=== PATIENT | female | born 1960 | race Caucasian/White ===

== ENCOUNTER 2016-12-26 14:49 | Emergency (ER) | payer BC ==
[~2016-12-26 14:49] MED LIST: AZIT250T3 PO; LORA-474 PO
[2016-12-26 15:06] VITALS: BP 126/78; PULSE 94; RESP 22; TEMP 98.7; O2SAT 99
[2016-12-26] MEDS ORDERED: SODIUM CHLORIDE 0.9% FLUSH 5 ML FLUSH IVF PRN (15:15)
[2016-12-26] MEDS ORDERED: NITROGLYCERIN 0.4 MG SL 25 TABS/BTL SL ONE (15:15)
[2016-12-26] MEDS ORDERED: ONDANSETRON HCL 4 MG/2 ML VIAL IV PUSH ONE (15:15)
[2016-12-26] MEDS ORDERED: MORPHINE SULFATE 4 MG/ML INJ IV PUSH ONE (15:15)
[2016-12-26] MEDS ORDERED: ASPIRIN 81 MG CHEW TAB PO ONE (15:15)
[2016-12-26] MEDS ORDERED: LORazepam 2 MG/ML VIAL IV PUSH ONE (15:15)
[2016-12-26] MEDS ORDERED: SODIUM CHLORID 0.9% 500 ML INJ 500 ML IV ONE (15:15)
[2016-12-26 15:18] VITALS: RESP 22; O2SAT 99
[2016-12-26 15:20] VITALS: BP_SYST 121; BP_SYST 126; BP_DIAS 78; BP_DIAS 79; PULSE 88; RESP 16; O2SAT 100
--- NOTE | 2016-12-26 15:29 | PD ---
HPI Chief Complaint: Chest Pain Time Seen by Provider: 15:01 Travel History International Travel<30 days: No Contact w/Intl Traveler<30days: No Traveled to known affect area: No History of Present Illness HPI The patient is a 56-year-old female who presents to the emergency department for chest pain. The patient states she developed chest pain while sitting on her porch, crying, because her last week. The patient states the chest pain was substernal, sharp, intermittent, and lasting for several minutes in between episodes. The patient denied any shortness of breath , nausea, vomiting, or diaphoresis. The patient does have a history of anxiety for which she takes Ativan 1 mg daily. However, the patient denies any history of coronary artery disease, hypertension, hyperlipidemia, or diabetes. The patient does have a history tobacco use and has been smoking one to 2 packs of cigarettes per day, since her . PFSH Past Medical History Anxiety: Yes Heart Rhythm Problems: No Cardiac Catheterization: No Cardiovascular Problems: No High Cholesterol: Yes Congestive Heart Failure: No Diminished Hearing: Yes ("diminished") GERD: Yes Headaches: Yes Musculoskeletal: Yes (chronic back pain) Migraines: Yes ?: Not Menopausal: Yes : 4 Para: 4 Miscarriage: 0 : 1 Past Surgical History Section: Yes (1991 and 1992) Cholecystectomy: Yes Coronary Artery Bypass Graft: No Other Surgery: Yes ("1988 and 1990,two disc surgeries") Family History Family Myocardial Infarction: Yes Social History Alcohol Use: No Tobacco Use: Yes (2 PPD) Substance Use: No Allergies-Medications (Allergen,Severity, Reaction): Coded Allergies: Codeine (Verified Adverse Reaction, Severe, "Tears my stomach up, nausea and itchiness", 10/31/16) Reported Meds & Prescriptions Reported Meds & Active Scripts Active Ativan (Lorazepam) 1 Mg Tab 1 Mg PO DAILY PRN Review of Systems Except as stated in HPI: all other systems reviewed are Neg General / Constitutional: No: Fever HENT: No: Lightheadedness Cardiovascular: Positive: Chest Pain or Discomfort, No: Diaphoresis, Dyspnea on exertion Respiratory: No: Shortness of Breath Gastrointestinal: No: Nausea, Vomiting Musculoskeletal: No: Edema Neurologic: No: Dizziness Psychiatric: Positive: Anxiety Physical Exam Narrative GENERAL: Awake, alert, pleasant 56-year-old female who appears her stated age and is in no acute respiratory distress. Tearful. SKIN: Warm and dry. HEAD: Atraumatic. Normocephalic. EYES: Pupils equal and round. No scleral icterus. No injection or drainage. ENT: No nasal bleeding or discharge. Mucous membranes pink and moist. NECK: Trachea midline. No JVD. CARDIOVASCULAR: Regular rate and rhythm. No murmur appreciated. Heart rate in the 90s. RESPIRATORY: No accessory muscle use. Clear to auscultation. Breath sounds equal bilaterally. GASTROINTESTINAL: Abdomen soft, non-tender, nondistended. No epigastric tenderness. No rebound tenderness. MUSCULOSKELETAL: No obvious deformities. No clubbing. No cyanosis. No edema. NEUROLOGICAL: Awake and alert. No obvious cranial nerve deficits. Motor grossly within normal limits. Normal speech. PSYCHIATRIC: Tearful. Data Data Last Documented VS Vital Signs Date Time Temp Pulse Resp B/P Pulse Ox O2 Delivery O2 Flow Rate FiO2 12/26/16 20:22 18 96 12/26/16 19:42 69 Room Air 12/26/16 19:42 100/63 12/26/16 15:06 98.7 Orders Electrocardiogram (12/26/16 15:05) Ckmb (Isoenzyme) Profile (12/26/16 15:05) Complete Blood Count With Diff (12/26/16 15:05) Comprehensive Metabolic Panel (12/26/16 15:05) D-Dimer (12/26/16 15:05) Magnesium (Mg) (12/26/16 15:05) Prothrombin Time / Inr (Pt) (12/26/16 15:05) Act Partial Throm Time (Ptt) (12/26/16 15:05) Troponin I (12/26/16 15:05) Lipase (12/26/16 15:05) Chest, Single Ap (12/26/16 15:05) Ecg Monitoring (12/26/16 15:05) Bilateral Bp Monitoring (12/26/16 15:05) Iv Access Insert/Monitor (12/26/16 15:05) Oximetry (12/26/16 15:05) Oxygen Administration (12/26/16 15:05) Aspirin Chew (Aspirin Chew) (12/26/16 15:15) Morphine Inj (Morphine Inj) (12/26/16 15:15) Sodium Chloride 0.9% Flush (Ns Flush) (12/26/16 15:15) Nitroglycerin Sl (Nitrostat Sl) (12/26/16 15:15) Sodium Chlorid 0.9% 500 Ml Inj (Ns 500 M (12/26/16 15:15) Ondansetron Inj (Zofran Inj) (12/26/16 15:15) Lorazepam Inj (Ativan Inj) (12/26/16 15:15) Ct Pulmonary Angiogram (12/26/16 ) Troponin I (12/26/16 18:10) Iohexol 350 Inj (Omnipaque 350 Inj) (12/26/16 23:44) Labs Laboratory Tests Test 12/26/16 12/26/16 15:15 19:02 White Blood Count 4.6 TH/MM3 Red Blood Count 4.34 MIL/MM3 Hemoglobin 13.3 GM/DL Hematocrit 39.9 % Mean Corpuscular Volume 92.0 FL Mean Corpuscular Hemoglobin 30.7 PG Mean Corpuscular Hemoglobin 33.3 % Concent Red Cell Distribution Width 13.0 % Platelet Count 232 TH/MM3 Mean Platelet Volume 7.7 FL Neutrophils (%) (Auto) 66.4 % Lymphocytes (%) (Auto) 24.5 % Monocytes (%) (Auto) 7.6 % Eosinophils (%) (Auto) 0.8 % Basophils (%) (Auto) 0.7 % Neutrophils # (Auto) 3.2 TH/MM3 Lymphocytes # (Auto) 1.1 TH/MM3 Monocytes # (Auto) 0.3 TH/MM3 Eosinophils # (Auto) 0.0 TH/MM3 Basophils # (Auto) 0.0 TH/MM3 CBC Comment DIFF FINAL Differential Comment Prothrombin Time 11.2 SEC Prothromb Time International 1.0 RATIO Ratio Activated Partial 25.9 SEC Thromboplast Time D-Dimer Quantitative (PE/DVT) 0.73 MG/L FEU Sodium Level 146 MEQ/L Potassium Level 3.5 MEQ/L Chloride Level 108 MEQ/L Carbon Dioxide Level 28.7 MEQ/L Anion Gap 9 MEQ/L Blood Urea Nitrogen 11 MG/DL Creatinine 0.83 MG/DL Estimat Glomerular Filtration 72 ML/MIN Rate Random Glucose 147 MG/DL Calcium Level 8.8 MG/DL Magnesium Level 2.2 MG/DL Total Bilirubin 0.4 MG/DL Aspartate Amino Transf 13 U/L (AST/SGOT) Alanine Aminotransferase 23 U/L (ALT/SGPT) Alkaline Phosphatase 73 U/L Total Creatine Kinase 54 U/L Troponin I LESS THAN 0.02 LESS THAN 0.02 NG/ML NG/ML Total Protein 7.2 GM/DL Albumin 3.9 GM/DL Lipase 211 U/L [facility] Medical Decision Making Medical Screen Exam Complete: Yes Emergency Medical Condition: Yes Medical Record Reviewed: Yes Interpretation(s) EKG reveals normal sinus rhythm with a rate in 96. Nonspecific septal ST-T wave changes. Low QRS voltage precordial leads. Laboratory Tests Test 12/26/16 15:15 White Blood Count 4.6 TH/MM3 Red Blood Count 4.34 MIL/MM3 Hemoglobin 13.3 GM/DL Hematocrit 39.9 % Mean Corpuscular Volume 92.0 FL Mean Corpuscular Hemoglobin 30.7 PG Mean Corpuscular Hemoglobin 33.3 % Concent Red Cell Distribution Width 13.0 % Platelet Count 232 TH/MM3 Mean Platelet Volume 7.7 FL Neutrophils (%) (Auto) 66.4 % Lymphocytes (%) (Auto) 24.5 % Monocytes (%) (Auto) 7.6 % Eosinophils (%) (Auto) 0.8 % Basophils (%) (Auto) 0.7 % Neutrophils # (Auto) 3.2 TH/MM3 Lymphocytes # (Auto) 1.1 TH/MM3 Monocytes # (Auto) 0.3 TH/MM3 Eosinophils # (Auto) 0.0 TH/MM3 Basophils # (Auto) 0.0 TH/MM3 CBC Comment DIFF FINAL Differential Comment Prothrombin Time 11.2 SEC Prothromb Time International 1.0 RATIO Ratio Activated Partial 25.9 SEC Thromboplast Time D-Dimer Quantitative (PE/DVT) 0.73 MG/L FEU Sodium Level 146 MEQ/L Potassium Level 3.5 MEQ/L Chloride Level 108 MEQ/L Carbon Dioxide Level 28.7 MEQ/L Anion Gap 9 MEQ/L Blood Urea Nitrogen 11 MG/DL Creatinine 0.83 MG/DL Estimat Glomerular Filtration 72 ML/MIN Rate Random Glucose 147 MG/DL Calcium Level 8.8 MG/DL Magnesium Level 2.2 MG/DL Total Bilirubin 0.4 MG/DL Aspartate Amino Transf 13 U/L (AST/SGOT) Alanine Aminotransferase 23 U/L (ALT/SGPT) Alkaline Phosphatase 73 U/L Total Creatine Kinase 54 U/L Troponin I LESS THAN 0.02 NG/ML Total Protein 7.2 GM/DL Albumin 3.9 GM/DL Lipase 211 U/L Differential Diagnosis Differential diagnosis includes acute coronary syndrome, Takotsubo syndrome, pericarditis, myocarditis, pulmonary embolism, panic attack, anxiety. Narrative Course IV was established, labs were drawn and sent, and the patient was placed on cardiac telemetry monitoring and continuous pulse oximetry monitoring. EKG was ordered and interpreted. Chest x-ray was ordered. The patient was administered Ativan, morphine, aspirin, Zofran, and IV fluids. D-dimer was sent to lab. The patient was signed out to Dr. Kern at 4 PM laboratory evaluation pending. If labs and d-dimer are negative, patient did have 2 sets of cardiac enzymes and be discharged home. D-dimer was positive, therefore, CT pulmonary angiogram was ordered. Diagnosis Primary Impression: Atypical chest pain Additional Impression: Anxiety Condition: Stable Ethan Maher MD Dec 26, 2016 15:29
[2016-12-26 15:34] LABS: AUTOMATED NEUTROPHIL # 3.2 TH/MM3 (1.8-7.7); BASOPHIL % 0.7 % (0.0-2.0); EOSINOPHIL % 0.8 % (0.0-4.0); HEMATOCRIT 39.9 % (35.0-46.0); HEMO FLAGS DIFF FINAL; LYMPH % 24.5 % (9.0-44.0); LYMPHOCYTE # 1.1 TH/MM3 (1.0-4.8); MEAN CORPUSCULAR HEMOGLOBIN 30.7 PG (27.0-34.0); MEAN CORPUSCULAR HGB CONC 33.3 % (32.0-36.0); MONO % 7.6 % (0.0-8.0); NEUT % 66.4 % (16.0-70.0); PLATELET COUNT 232 TH/MM3 (150-450); RED BLOOD COUNT 4.34 MIL/MM3 (4.00-5.30); WHITE BLOOD COUNT 4.6 TH/MM3 (4.0-11.0)
[2016-12-26 15:41] LABS: CHLORIDE 108 MEQ/L (98-107); POTASSIUM 3.5 MEQ/L (3.5-5.1); SODIUM (NA) 146 MEQ/L (136-145)
[2016-12-26 15:46] LABS: ANION GAP 9 MEQ/L (5-15); APTT (PATIENT) 25.9 SEC (24.3-30.1); BICARBONATE 28.7 MEQ/L (21.0-32.0); BLOOD UREA NITROGEN 11 MG/DL (7-18); MAGNESIUM 2.2 MG/DL (1.5-2.5); PROTHROMBIN TIME - PATIENT 11.2 SEC (9.8-11.6)
[2016-12-26 15:49] LABS: ALT (GPT) 23 U/L (10-53); AST (GOT) 13 U/L (15-37); GLOMERULAR FILTRATION RATE 72 ML/MIN (>89)
[2016-12-26 15:50] LABS: TOTAL BILIRUBIN ADULT 0.4 MG/DL (0.2-1.0)
[2016-12-26 15:52] LABS: ALKALINE PHOSPHATASE 73 U/L (45-117)
[2016-12-26 16:07] LABS: CREATINE KINASE 54 U/L (26-192)
[2016-12-26 16:13] VITALS: BP 122/77; PULSE 80; RESP 16; O2SAT 100
--- NOTE | 2016-12-26 16:13 | RADHPO ---
EXAM DATE/TIME: 12/26/2016 15:26 [facility] COMPARISON: CHEST SINGLE AP, May 26, 2014, 20:20. INDICATIONS : Chest pain. MEDICAL HISTORY : Hypercholesterolemia. Gastroesophageal reflux disease. Chronic back pain, Diabetes SURGICAL HISTORY : Cholecystectomy. section. Lumbar spine surgery ENCOUNTER: Initial ACUITY: 1 day PAIN SCORE: 9/10 LOCATION: Right chest FINDINGS: A single view of the chest demonstrates the lungs to be symmetrically aerated without evidence of mas s, infiltrate or effusion. The cardiomediastinal contours are unremarkable. Osseous structures are intact. CONCLUSION: No acute disease. Ming Borges MD on December 26, 2016 at 16:12 Board Certified Radiologist. This report was verified electronically.
--- NOTE | 2016-12-26 17:18 | PD ---
HPI Chief Complaint: Chest Pain Time Seen by Provider: 16:36 Travel History International Travel<30 days: No Contact w/Intl Traveler<30days: No Traveled to known affect area: No History of Present Illness HPI This 56-year-old female had presented with complaint of chest pain. She was seen initially by Dr. Maher who ordered a complete workup. A d-dimer had been ordered and is come back elevated so a CTA has been ordered. The patient was complaining of a lot of substernal pain. She has been medicated with morphine and Ativan and at the time of my evaluation at 5:15 she is sleeping comfortably. She was complaining of a lot of pain prior to this. She has had a very stressful week. Her of a heart attack. Her initial troponin is normal. PFSH Past Medical History Anxiety: Yes Heart Rhythm Problems: No Cardiac Catheterization: No Cardiovascular Problems: No High Cholesterol: Yes Congestive Heart Failure: No Diminished Hearing: Yes ("diminished") GERD: Yes Headaches: Yes Musculoskeletal: Yes (chronic back pain) Migraines: Yes ?: Not Menopausal: Yes : 4 Para: 4 Miscarriage: 0 : 1 Past Surgical History Section: Yes (1991 and 1992) Cholecystectomy: Yes Coronary Artery Bypass Graft: No Other Surgery: Yes ("1988 and 1990,two disc surgeries") Family History Family Myocardial Infarction: Yes Social History Alcohol Use: No Tobacco Use: Yes (2 PPD) Substance Use: No Allergies-Medications (Allergen,Severity, Reaction): Coded Allergies: Codeine (Verified Adverse Reaction, Severe, "Tears my stomach up, nausea and itchiness", 10/31/16) Reported Meds & Prescriptions Reported Meds & Active Scripts Active Ativan (Lorazepam) 1 Mg Tab 1 Mg PO DAILY PRN Physical Exam Narrative See Dr. Maher's dictation Data Data Last Documented VS Vital Signs Date Time Temp Pulse Resp B/P Pulse Ox O2 Delivery O2 Flow Rate FiO2 12/26/16 18:15 76 18 100 Room Air 12/26/16 16:13 122/77 12/26/16 15:06 98.7 Orders Electrocardiogram (12/26/16 15:05) Ckmb (Isoenzyme) Profile (12/26/16 15:05) Complete Blood Count With Diff (12/26/16 15:05) Comprehensive Metabolic Panel (12/26/16 15:05) D-Dimer (12/26/16 15:05) Magnesium (Mg) (12/26/16 15:05) Prothrombin Time / Inr (Pt) (12/26/16 15:05) Act Partial Throm Time (Ptt) (12/26/16 15:05) Troponin I (12/26/16 15:05) Lipase (12/26/16 15:05) Chest, Single Ap (12/26/16 15:05) Ecg Monitoring (12/26/16 15:05) Bilateral Bp Monitoring (12/26/16 15:05) Iv Access Insert/Monitor (12/26/16 15:05) Oximetry (12/26/16 15:05) Oxygen Administration (12/26/16 15:05) Aspirin Chew (Aspirin Chew) (12/26/16 15:15) Morphine Inj (Morphine Inj) (12/26/16 15:15) Sodium Chloride 0.9% Flush (Ns Flush) (12/26/16 15:15) Nitroglycerin Sl (Nitrostat Sl) (12/26/16 15:15) Sodium Chlorid 0.9% 500 Ml Inj (Ns 500 M (12/26/16 15:15) Ondansetron Inj (Zofran Inj) (12/26/16 15:15) Lorazepam Inj (Ativan Inj) (12/26/16 15:15) Ct Pulmonary Angiogram (12/26/16 ) Troponin I (12/26/16 18:10) Labs Laboratory Tests Test 12/26/16 12/26/16 15:15 19:02 White Blood Count 4.6 TH/MM3 Red Blood Count 4.34 MIL/MM3 Hemoglobin 13.3 GM/DL Hematocrit 39.9 % Mean Corpuscular Volume 92.0 FL Mean Corpuscular Hemoglobin 30.7 PG Mean Corpuscular Hemoglobin 33.3 % Concent Red Cell Distribution Width 13.0 % Platelet Count 232 TH/MM3 Mean Platelet Volume 7.7 FL Neutrophils (%) (Auto) 66.4 % Lymphocytes (%) (Auto) 24.5 % Monocytes (%) (Auto) 7.6 % Eosinophils (%) (Auto) 0.8 % Basophils (%) (Auto) 0.7 % Neutrophils # (Auto) 3.2 TH/MM3 Lymphocytes # (Auto) 1.1 TH/MM3 Monocytes # (Auto) 0.3 TH/MM3 Eosinophils # (Auto) 0.0 TH/MM3 Basophils # (Auto) 0.0 TH/MM3 CBC Comment DIFF FINAL Differential Comment Prothrombin Time 11.2 SEC Prothromb Time International 1.0 RATIO Ratio Activated Partial 25.9 SEC Thromboplast Time D-Dimer Quantitative (PE/DVT) 0.73 MG/L FEU Sodium Level 146 MEQ/L Potassium Level 3.5 MEQ/L Chloride Level 108 MEQ/L Carbon Dioxide Level 28.7 MEQ/L Anion Gap 9 MEQ/L Blood Urea Nitrogen 11 MG/DL Creatinine 0.83 MG/DL Estimat Glomerular Filtration 72 ML/MIN Rate Random Glucose 147 MG/DL Calcium Level 8.8 MG/DL Magnesium Level 2.2 MG/DL Total Bilirubin 0.4 MG/DL Aspartate Amino Transf 13 U/L (AST/SGOT) Alanine Aminotransferase 23 U/L (ALT/SGPT) Alkaline Phosphatase 73 U/L Total Creatine Kinase 54 U/L Troponin I LESS THAN 0.02 LESS THAN 0.02 NG/ML NG/ML Total Protein 7.2 GM/DL Albumin 3.9 GM/DL Lipase 211 U/L [facility] Medical Decision Making Medical Screen Exam Complete: Yes Emergency Medical Condition: Yes Medical Record Reviewed: Yes Differential Diagnosis Differential includes coronary artery disease, anxiety attack, panic attack, memory embolus Narrative Course EKG shows sinus rhythm. A d-dimer was elevated at 0.73 so a CTA has been done and is negative for pulmonary embolus. Initial troponin is 0.02. A second troponin is also normal. At 7:30 the patient reports feeling better. She is stable for discharge Diagnosis Primary Impression: Anxiety Additional Instructions: Return as needed. Follow-up with your own doctor Disposition: 01 DISCHARGE HOME Condition: Stable Jesus Noble MD Dec 26, 2016 17:18
--- NOTE | 2016-12-26 17:36 | RADHPO ---
EXAM DATE/TIME: 12/26/2016 16:40 [facility] COMPARISON: CT PULMONARY ANGIOGRAM, May 26, 2014, 22:32. INDICATIONS : Substernal chest pain. IV CONTRAST: 80 cc Omnipaque 350 (iohexol) IV RADIATION DOSE: 9.04 CTDIvol (mGy) MEDICAL HISTORY : Gastroesophageal reflux disease. SURGICAL HISTORY : Cholecystectomy. ENCOUNTER: Initial ACUITY: 1 day PAIN SCALE: 7/10 LOCATION: chest TECHNIQUE: Volumetric scanning of the chest was performed using a pulmonary embolism protocol MIP images were re constructed. Using automated exposure control and adjustment of the mA and/or kV according to patien t size, radiation dose was kept as low as reasonably achievable to obtain optimal diagnostic quality images. FINDINGS: PULMONARY ARTERIES: No filling defects are seen in the pulmonary arteries through the segmental level. LUNGS: Minimal scattered bullae are noted within the lung bases bilaterally. There is no consolidation or pn eumothorax . No concerning pulmonary nodule is visualized. PLEURAE: There is no pleural thickening or pleural effusion. MEDIASTINUM: There is good visualization of the great vessels of the middle mediastinum. No evidence of mediastin al or hilar adenopathy/mass. MUSCULOSKELETAL: Within normal limits for patient age. MISCELLANEOUS: The visualized upper abdominal organs demonstrate no acute abnormality. CONCLUSION: No evidence of pulmonary embolism. Minimal scattered bullae within the lung bases lio aterally. Ming Borges MD on December 26, 2016 at 17:33 Board Certified Radiologist. This report was verified electronically.
[2016-12-26 19:42] VITALS: BP 100/63; PULSE 66; RESP 18; O2SAT 98
[2016-12-26] MEDS ORDERED: IOHEXOL 350 MG/ML 10 ML VIAL (for RAD DIAG) IV ONE (23:44)
--- NOTE | 2016-12-27 13:12 | EKG ---
Date Performed: 12/26/2016 Time Performed: 14:56:14 PTAGE: 56 years EKG: Sinus rhythm Possible left atrial abnormality rSr'(V1) - probable normal variant Septal ST-T changes are nonspeci fic Low QRS voltages in precordial leads Compared to prior tracing no significant change Borderline E CG PREVIOUS TRACING : 05/26/2014 23.30 DOCTOR: Vincent Alexander Interpretating Date/Time 12/27/2016 13:10:34
== END 2016-12-26 20:24 | disposition home or self-care (01) ==
LOC: PHED 14:49
DX: R07.89 Other chest pain (principal); R94.31 Abnormal electrocardiogram [ECG] [EKG]; F17.210 Nicotine dependence, cigarettes, uncomplicated; E78.00 Pure hypercholesterolemia, unspecified; K21.9 Gastro-esophageal reflux disease without esophagitis; F41.9 Anxiety disorder, unspecified
CPT/HCPCS: 71010; 71275; 80053; 82550; 83690; 83735; 84484; 85025; 85379; 85610; 85730; 93005; 96361; 96374; 96375; 99285; J2060; J2270; J2405; J7040; Q9967

== ENCOUNTER 2017-02-26 18:31 | Emergency (ER) | payer SELFPAY ==
[~2017-02-26] VITALS: Ht 177.8 cm; Wt 71.0 kg
[~2017-02-26 18:31] MED LIST changes: -AZIT250T3 PO
[2017-02-26 18:40] VITALS: BP 138/72; PULSE 76; RESP 18; TEMP 98; O2SAT 98
[2017-02-26] MEDS ORDERED: SODIUM CHLORIDE 0.9% FLUSH 10 ML FLUSH IVF PRN (18:45)
[2017-02-26] MEDS ORDERED: SODIUM CHLORID 0.9% 500 ML INJ 500 ML IV ONE (18:45)
[2017-02-26] MEDS ORDERED: FAMOTIDINE 20 MG/2 ML VIAL IV PUSH SCH (18:45)
[2017-02-26] MEDS ORDERED: ONDANSETRON HCL 4 MG/2 ML VIAL IV PUSH ONE (18:45)
--- NOTE | 2017-02-26 18:48 | PD ---
HPI Chief Complaint: abdominal pain Time Seen by Provider: 18:39 Travel History International Travel<30 days: No Contact w/Intl Traveler<30days: No Traveled to known affect area: No History of Present Illness HPI 56-year-old female with history of smoking, prediabetes, high cholesterol, presents to the ER today because of substernal and epigastric pains that started early this morning, currently being rated at a 7 out of 10. She is been nauseous and vomited 2. She denies any diarrhea, fevers, or any other symptoms. She states the pain seems to worsen with eating. She states that initially she thought it was anxiety and had taken her Ativan at home, and took some Zofran that she had left over from previously, but states that it has not gone away when she woke up this evening. She states that she had a cholecystectomy done about 8 months ago. She denies previous history of similar pains. Modifying Factors: Worse with eating Associated Signs & Symptoms: Nausea, vomiting, epigastric and substernal pains Risk Factors: None PFSH Past Medical History Anxiety: Yes Heart Rhythm Problems: No Cardiac Catheterization: No Cardiovascular Problems: No High Cholesterol: Yes Congestive Heart Failure: No Diminished Hearing: Yes ("diminished") GERD: Yes Headaches: Yes Musculoskeletal: Yes (chronic back pain) Migraines: Yes Menopausal: Yes : 4 Para: 4 Miscarriage: 0 : 1 Past Surgical History Section: Yes (1991 and 1992) Cholecystectomy: Yes Coronary Artery Bypass Graft: No Other Surgery: Yes ("1988 and 1990,two disc surgeries") Social History Alcohol Use: No Tobacco Use: Yes (2 PPD) Substance Use: No Allergies-Medications (Allergen,Severity, Reaction): Coded Allergies: Codeine (Verified Adverse Reaction, Severe, "Tears my stomach up, nausea and itchiness", 10/31/16) Reported Meds & Prescriptions Reported Meds & Active Scripts Active Ativan (Lorazepam) 1 Mg Tab 1 Mg PO DAILY PRN Review of Systems Except as stated in HPI: all other systems reviewed are Neg Physical Exam Narrative GENERAL: Well-developed middle age female patient currently in no acute distress. Awake and oriented 3. SKIN: Focused skin assessment warm/dry. HEAD: Atraumatic. Normocephalic. EYES: Pupils equal and round. No scleral icterus. No injection or drainage. ENT: No nasal bleeding or discharge. Mucous membranes pink and moist. NECK: Trachea midline. No JVD. CARDIOVASCULAR: Regular rate and rhythm. No murmur appreciated. Pulses are present and equal bilaterally. RESPIRATORY: No accessory muscle use. Clear to auscultation. Breath sounds equal bilaterally. GASTROINTESTINAL: Abdomen soft, non-tender, nondistended. Hepatic and splenic margins not palpable. MUSCULOSKELETAL: No obvious deformities. No clubbing. No cyanosis. No edema. NEUROLOGICAL: Awake and alert. No obvious cranial nerve deficits. Motor grossly within normal limits. Normal speech. PSYCHIATRIC: Appropriate mood and affect; insight and judgment normal. Data Data Orders Electrocardiogram (02/26/17 18:39) Ckmb (Isoenzyme) Profile (02/26/17 18:39) Complete Blood Count With Diff (02/26/17:39) Comprehensive Metabolic Panel (02/26/17 18:39) Magnesium (Mg) (02/26/17 18:39) Prothrombin Time / Inr (Pt) (02/26/17 18:39) Act Partial Throm Time (Ptt) (02/26/17 18:39) Troponin I (02/26/17 18:39) Lipase (02/26/17 18:39) Chest, Single Ap (02/26/17 18:39) Ecg Monitoring (02/26/17 18:39) Bilateral Bp Monitoring (02/26/17 18:39) Iv Access Insert/Monitor (02/26/17 18:39) Oximetry (02/26/17 18:39) Oxygen Administration (02/26/17 18:39) Sodium Chloride 0.9% Flush (Ns Flush) (02/26/17 18:45) Sodium Chlorid 0.9% 500 Ml Inj (Ns 500 M (02/26/17 18:45) Ondansetron Inj (Zofran Inj) (02/26/17 18:45) Famotidine Inj (Pepcid Inj) (02/26/17 18:45) MDM Medical Decision Making Medical Screen Exam Complete: Yes Emergency Medical Condition: Yes Medical Record Reviewed: Yes Interpretation(s) EKG shows NSR, no ST elevation or depression, and no arrhythmias. No significant T-wave inversions. Differential Diagnosis Nausea, vomiting, substernal and epigastric abdominal paingastritis versus gastroesophageal reflux versus pancreatitis versus gastroenteritis versus ACS Narrative Course Patient was given IV fluids, Zofran, and Pepcid in the ER. Lab work and Cxr was ordered for further evaluation. Physician Communication Physician Communication Case is signed out to Dr. Foley at 7 PM awaiting workup. Disposition based on workup. Diagnosis Primary Impression: Abdominal pain Condition: Stable Stephanie Sanchez MD Feb 26, 2017 18:48
[2017-02-26 18:50] VITALS: RESP 18; O2SAT 98
--- NOTE | 2017-02-26 19:07 | RADHPO ---
EXAM DATE/TIME: 02/26/2017 18:53 [facility] COMPARISON: CHEST SINGLE AP, December 26, 2016, 15:26. INDICATIONS : Chest pain and nausea and vomiting. MEDICAL HISTORY : None. SURGICAL HISTORY : None. ENCOUNTER: Initial ACUITY: 3 days PAIN SCORE: 6/10 LOCATION: Bilateral chest FINDINGS: A single view of the chest demonstrates the lungs to be symmetrically aerated without evidence of mas s, infiltrate or effusion. The cardiomediastinal contours are unremarkable. Osseous structures are intact. CONCLUSION: No acute disease. Rodger Lopez MD on February 26, 2017 at 19:05 Board Certified Radiologist. This report was verified electronically.
[2017-02-26 19:10] LABS: AUTOMATED NEUTROPHIL # 3.5 TH/MM3 (1.8-7.7); BASOPHIL % 0.4 % (0.0-2.0); EOSINOPHIL # 0.1 TH/MM3 (0-0.4); EOSINOPHIL % 1.3 % (0.0-4.0); HEMATOCRIT 40.3 % (35.0-46.0); HEMO FLAGS DIFF FINAL; LYMPHOCYTE # 1.2 TH/MM3 (1.0-4.8); MEAN CELL VOLUME 92.3 FL (80.0-100.0); MEAN CORPUSCULAR HEMOGLOBIN 30.9 PG (27.0-34.0); MEAN CORPUSCULAR HGB CONC 33.5 % (32.0-36.0); NEUT % 68.3 % (16.0-70.0); PLATELET COUNT 210 TH/MM3 (150-450); RED BLOOD COUNT 4.37 MIL/MM3 (4.00-5.30); RED CELL DISTRIBUTION WIDTH 13.1 % (11.6-17.2); WHITE BLOOD COUNT 5.2 TH/MM3 (4.0-11.0)
[2017-02-26 19:18] LABS: CHLORIDE 106 MEQ/L (98-107); POTASSIUM 3.8 MEQ/L (3.5-5.1); SODIUM (NA) 143 MEQ/L (136-145)
[2017-02-26 19:20] VITALS: BP_SYST 112; BP_SYST 114; BP_DIAS 65; PULSE 62; PULSE 72; RESP 16; O2SAT 95; O2SAT 97
[2017-02-26 19:22] LABS: ANION GAP 9 MEQ/L (5-15); BICARBONATE 27.9 MEQ/L (21.0-32.0); BLOOD UREA NITROGEN 12 MG/DL (7-18); MAGNESIUM 2.2 MG/DL (1.5-2.5)
[2017-02-26 19:23] LABS: APTT (PATIENT) 26.2 SEC (24.3-30.1); PROTHROMBIN TIME - PATIENT 10.9 SEC (9.8-11.6)
[2017-02-26 19:25] LABS: ALT (GPT) 18 U/L (10-53); AST (GOT) 9 U/L (15-37); GLOMERULAR FILTRATION RATE 69 ML/MIN (>89)
[2017-02-26 19:26] LABS: TOTAL BILIRUBIN ADULT 0.2 MG/DL (0.2-1.0)
[2017-02-26 19:28] LABS: ALKALINE PHOSPHATASE 82 U/L (45-117)
[2017-02-26 19:33] LABS: CREATINE KINASE 58 U/L (26-192)
[2017-02-26] MEDS ORDERED: ZOFR4TAB PO (19:49)
[2017-02-26] MEDS ORDERED: PRIL20CA9 PO (19:49)
[2017-02-26] MEDS ORDERED: LORA-474 PO (19:49)
--- NOTE | 2017-02-26 19:50 | PD ---
Physical Exam Time Seen by Provider: 19:[address] Funk left this patient with me to check the laboratory work and likely discharge. Data Data Last Documented VS Vital Signs Date Time Temp Pulse Resp B/P Pulse Ox O2 Delivery O2 Flow Rate FiO2 02/26/17 18:50 18 98 Room Air 02/26/17 18:45 76 02/26/17 18:40 98.0 138/72 Orders Electrocardiogram (02/26/17 18:39) Ckmb (Isoenzyme) Profile (02/26/17 18:39) Complete Blood Count With Diff (02/26/17 18:39) Comprehensive Metabolic Panel (02/26/17 18:39) Magnesium (Mg) (02/26/17 18:39) Prothrombin Time / Inr (Pt) (02/26/17 18:39) Act Partial Throm Time (Ptt) (02/26/17 18:39) Troponin I (02/26/17 18:39) Lipase (02/26/17 18:39) Chest, Single Ap (02/26/17 18:39) Ecg Monitoring (02/26/17 18:39) Bilateral Bp Monitoring (02/26/17 18:39) Iv Access Insert/Monitor (02/26/17 18:39) Oximetry (02/26/17 18:39) Oxygen Administration (02/26/17 18:39) Sodium Chloride 0.9% Flush (Ns Flush) (02/26/17 18:45) Sodium Chlorid 0.9% 500 Ml Inj (Ns 500 M (02/26/17 18:45) Ondansetron Inj (Zofran Inj) (02/26/17 18:45) Famotidine Inj (Pepcid Inj) (02/26/17 18:45) Labs Laboratory Tests Test 02/26/17 18:50 White Blood Count 5.2 TH/MM3 Red Blood Count 4.37 MIL/MM3 Hemoglobin 13.5 GM/DL Hematocrit 40.3 % Mean Corpuscular Volume 92.3 FL Mean Corpuscular Hemoglobin 30.9 PG Mean Corpuscular Hemoglobin 33.5 % Concent Red Cell Distribution Width 13.1 % Platelet Count 210 TH/MM3 Mean Platelet Volume 7.8 FL Neutrophils (%) (Auto) 68.3 % Lymphocytes (%) (Auto) 23.0 % Monocytes (%) (Auto) 7.0 % Eosinophils (%) (Auto) 1.3 % Basophils (%) (Auto) 0.4 % Neutrophils # (Auto) 3.5 TH/MM3 Lymphocytes # (Auto) 1.2 TH/MM3 Monocytes # (Auto) 0.4 TH/MM3 Eosinophils # (Auto) 0.1 TH/MM3 Basophils # (Auto) 0.0 TH/MM3 CBC Comment DIFF FINAL Differential Comment Prothrombin Time 10.9 SEC Prothromb Time International 1.0 RATIO Ratio Activated Partial 26.2 SEC Thromboplast Time Sodium Level 143 MEQ/L Potassium Level 3.8 MEQ/L Chloride Level 106 MEQ/L Carbon Dioxide Level 27.9 MEQ/L Anion Gap 9 MEQ/L Blood Urea Nitrogen 12 MG/DL Creatinine 0.86 MG/DL Estimat Glomerular Filtration 69 ML/MIN Rate Random Glucose 107 MG/DL Calcium Level 9.7 MG/DL Magnesium Level 2.2 MG/DL Total Bilirubin 0.2 MG/DL Aspartate Amino Transf 9 U/L (AST/SGOT) Alanine Aminotransferase 18 U/L (ALT/SGPT) Alkaline Phosphatase 82 U/L Total Creatine Kinase 58 U/L Troponin I LESS THAN 0.02 NG/ML Total Protein 7.7 GM/DL Albumin 4.2 GM/DL Lipase 233 U/L MDM Medical Record Reviewed: Yes Supervised Visit with MAK: Yes Interpretation(s) The CBC is normal. The chest x-ray shows no acute disease. The EKG is normal with normal sinus rhythm of 77. The cardiac enzymes are normal. The complete metabolic profile shows a GFR of 69 but is otherwise unremarkable. The lipase is normal. The coagulation profile is normal. Differential Diagnosis Gastritis, anxiety, acute cardiac syndromeunlikely, reflux esophagitis, electrolyte disorder, anemia, ulcer pain, urinary tract infectionunlikely Narrative Course The patient appears to have reflux esophagitis along with anxiety. The Zofran does help her in this will be refilled. She says her doctor is out of town and cannot get any more Ativan and request some Ativan 1 mg. She will also get Prilosec prescription. Diagnosis Primary Impression: Abdominal pain Additional Impressions: Anxiety GERD (gastroesophageal reflux disease) Additional Instruction: As we discussed, follow-up with her primary care physician as soon as he gets back in town. Do not drink alcohol or drive on the Ativan. Prilosec is normally taken once daily but, if symptoms get worse, they can be taken one tablet twice daily. Med/Other Pt SpecificInfo: Prescription(s) given Scripts Lorazepam (Ativan)1 Mg Tab1 Mg PO Q8H PRN (ANXIETY AND/OR AGITATION) #10 TAB Ref 0 Prov:Laith Foley MD 02/26/17 Ondansetron (Zofran)4 Mg Tab4 Mg PO Q6HR PRN (NAUSEA OR VOMITING) #20 TAB Ref 0 Prov:Laith Foley MD 02/26/17 Omeprazole (Prilosec)20 Mg Cap20 Mg PO DAILY #30 CAP Ref 0 Prov:Laith Foley MD 02/26/17 Disposition: 01 DISCHARGE HOME Condition: Stable Laith Foley MD Feb 26, 2017 19:50
[2017-02-26 20:40] VITALS: BP 118/69; PULSE 65; RESP 16; O2SAT 99
--- NOTE | 2017-02-26 22:53 | EKG ---
Date Performed: 02/26/2017 Time Performed: 18:35:28 PTAGE: 56 years EKG: Sinus rhythm rSr'(V1) - probable normal variant Normal ECG PREVIOUS TRACING : 12/26/2016 14.56 No significant change from previous tracing noted. DOCTOR: Francisco Holcomb Interpretating Date/Time 02/26/2017 22:52:35
== END 2017-02-26 20:59 | disposition home or self-care (01) ==
LOC: PHED 18:31
DX: R10.9 Unspecified abdominal pain (principal); R73.03 Prediabetes; E78.00 Pure hypercholesterolemia, unspecified; F17.210 Nicotine dependence, cigarettes, uncomplicated
CPT/HCPCS: 71010; 80053; 82550; 83690; 83735; 84484; 85025; 85610; 85730; 93005; 96361; 96374; 96375; 99284; J2405; J7040

== ENCOUNTER 2017-04-08 22:15 | Emergency (ER) | payer OTHER ==
[~2017-04-08] VITALS: Ht 177.8 cm; Wt 71.0 kg
[~2017-04-08 22:15] MED LIST changes: +PRIL20CA9 PO; +ZOFR4TAB PO
[2017-04-08 22:38] VITALS: BP 112/74; PULSE 82; RESP 15; TEMP 97.6; O2SAT 98
[2017-04-08] MEDS ORDERED: ALPRAZolam 1 MG TAB PO ONE (23:00)
[2017-04-08] MEDS ORDERED: MOBI15TA PO (23:04)
--- NOTE | 2017-04-08 23:09 | PD ---
HPI Chief Complaint: GI Complaint Time Seen by Provider: 22:49 Travel History International Travel<30 days: No Contact w/Intl Traveler<30days: No Traveled to known affect area: No History of Present Illness HPI The patient is a 56-year-old female that has a history of anxiety and panic attacks who felt short of breath and nauseated. This is been going on for an hour. She also has some left shoulder pain for a week. She denies any trauma to that shoulder. She has had problems with the left shoulder before. She states that Naprosyn makes her nauseated. She was taking Naprosyn but she started getting nauseated with it. PFSH Past Medical History Anxiety: Yes Heart Rhythm Problems: No Cardiac Catheterization: No Cardiovascular Problems: No High Cholesterol: Yes Congestive Heart Failure: No Diminished Hearing: Yes ("diminished") GERD: Yes Headaches: Yes Heparin Induced Thrombocytopen: No Hypertension: No Musculoskeletal: Yes (chronic back pain) Migraines: Yes ?: Not Menopausal: Yes : 4 Para: 4 Miscarriage: 0 : 1 Past Surgical History Section: Yes (1991 and 1992) Cholecystectomy: Yes Coronary Artery Bypass Graft: No Other Surgery: Yes ("1988 and 1990,two disc surgeries") Social History Alcohol Use: No Tobacco Use: Yes (1 ppd) Substance Use: No Allergies-Medications (Allergen,Severity, Reaction): Coded Allergies: Codeine (Verified Adverse Reaction, Severe, "Tears my stomach up, nausea and itchiness", 04/08/17) Reported Meds & Prescriptions Reported Meds & Active Scripts Active Ativan (Lorazepam) 1 Mg Tab 1 Mg PO Q8H PRN Zofran (Ondansetron HCl) 4 Mg Tab 4 Mg PO Q6HR PRN Ativan (Lorazepam) 1 Mg Tab 1 Mg PO DAILY PRN Review of Systems Except as stated in HPI: all other systems reviewed are Neg Physical Exam Narrative GENERAL: Well-nourished, well-developed patient who appears extremely anxious. Her vital signs are normal. SKIN: Focused skin assessment warm/dry. HEAD: Normocephalic. EYES: No scleral icterus. No injection or drainage. NECK: Supple, trachea midline. No JVD or lymphadenopathy. CARDIOVASCULAR: Regular rate and rhythm without murmurs, gallops, or rubs. RESPIRATORY: Breath sounds equal bilaterally. No accessory muscle use. GASTROINTESTINAL: Abdomen soft, non-tender, nondistended. MUSCULOSKELETAL: No cyanosis, or edema. There is minimal tenderness over the shoulder but she does complain of pain when I abduct the shoulder beyond 90. No erythema or swelling is present over the left shoulder. Good capillary refill and pinprick is present on the left wrist/hand. BACK: Nontender without obvious deformity. No CVA tenderness. Data Data Last Documented VS Vital Signs Date Time Temp Pulse Resp B/P Pulse Ox O2 Delivery O2 Flow Rate FiO2 04/08/17 22:38 97.6 82 15 112/74 98 MDM Medical Decision Making Medical Screen Exam Complete: Yes Emergency Medical Condition: Yes Medical Record Reviewed: Yes Differential Diagnosis Panic attack, anxiety hyperventilation, exacerbation of chronic left shoulder pain, medication side effect Narrative Course The patient appears to have a panic attack. Her nausea may be from the panic attack or the Naprosyn that she took today that made her nauseated today. Plan: The patient is given a 1 mg Ativan tablet here. She is given Mobic to see if this helps the shoulder pain. Diagnosis Primary Impression: Panic attack Additional Impressions: Left shoulder pain Medication side effect Additional Instructions: The Mobic Is one tablet daily. Along with the tablet and you should rest the left shoulder. As you intend to do, follow-up with a primary care physician. Med/Other Pt SpecificInfo: Prescription(s) given Scripts Meloxicam (Mobic)15 Mg Tab15 Mg PO DAILY #30 TAB Ref 0 Prov:Laith Foley MD 04/08/17 Disposition: 01 DISCHARGE HOME Condition: Stable Laith Foley MD April 08, 2017 23:09
[2017-04-08] MEDS ORDERED: KETOROLAC TROMETHAMINE 60 MG/2 ML (IM) VIAL IM ONE (23:15)
== END 2017-04-08 23:42 | disposition home or self-care (01) ==
LOC: PHED 22:15
DX: F41.0 Panic disorder [episodic paroxysmal anxiety] (principal); M25.512 Pain in left shoulder; F41.9 Anxiety disorder, unspecified; E78.00 Pure hypercholesterolemia, unspecified; K21.9 Gastro-esophageal reflux disease without esophagitis; F17.200 Nicotine dependence, unspecified, uncomplicated; M54.9 Dorsalgia, unspecified; G89.29 Other chronic pain; Z88.5 Allergy status to narcotic agent
CPT/HCPCS: 96372; 99284; J1885

== ENCOUNTER 2017-06-26 22:30 | Emergency (ER) | payer OTHER ==
[~2017-06-26] VITALS: Ht 177.8 cm; Wt 68.5 kg
[~2017-06-26 22:30] MED LIST changes: +MOBI15TA PO; -PRIL20CA9 PO; -ZOFR4TAB PO
[2017-06-26 22:35] VITALS: BP 139/83; PULSE 79; RESP 20; TEMP 97.5; O2SAT 98
[2017-06-27] VITALS: BP 139/83; PULSE 79; RESP 20; TEMP 97.5; O2SAT 98
[2017-06-27] MEDS ORDERED: ABIL2TAB2 PO (00:34)
[2017-06-27] MEDS ORDERED: LEXA10TA PO (00:34)
[2017-06-27 00:37] VITALS: BP 126/76; PULSE 79; RESP 18; TEMP 98.1; O2SAT 98
[2017-06-27] MEDS ORDERED: SODIUM CHLOR 0.9% 1000 ML INJ 1,000 ML IV SCH (00:42)
[2017-06-27] MEDS ORDERED: ONDANSETRON HCL 4 MG/2 ML VIAL IVP ONE (00:45)
[2017-06-27] MEDS ORDERED: SODIUM CHLORIDE 0.9% FLUSH 10 ML FLUSH IV FLUSH PRN (00:45)
[2017-06-27] MEDS ORDERED: KETOROLAC TROMETHAMINE 30 MG/ML (IVP) VIAL IV PUSH ONE (00:45)
--- NOTE | 2017-06-27 01:07 | RADRPT ---
EXAM DATE/TIME: 06/27/2017 00:57 [facility] COMPARISON: CHEST SINGLE AP, February 26, 2017, 18:53. INDICATIONS : Chest pain, nausea and vomiting. MEDICAL HISTORY : Gastroesophageal reflux disease. SURGICAL HISTORY : Cholecystectomy. ENCOUNTER: Initial ACUITY: 1 week PAIN SCORE: 7/10 LOCATION: Bilateral chest FINDINGS: A single view of the chest demonstrates the lungs to be symmetrically aerated without evidence of mas s, infiltrate or effusion. The cardiomediastinal contours are unremarkable. Osseous structures are intact. CONCLUSION: No acute disease. Jacky Jackson MD on June 27, 2017 at 1:06 Board Certified Radiologist. This report was verified electronically.
[2017-06-27 01:24] VITALS: O2SAT 98
[2017-06-27 01:33] LABS: AUTOMATED NEUTROPHIL # 2.5 TH/MM3 (1.8-7.7); BASOPHIL % 0.4 % (0.0-2.0); BLOOD, URINE TRACE (NEG); EOSINOPHIL # 0.1 TH/MM3 (0-0.4); EOSINOPHIL % 1.5 % (0.0-4.0); GLUCOSE,URINE NEG (NEG); HEMATOCRIT 41.6 % (35.0-46.0); HEMO FLAGS DIFF FINAL; KETONE, URINE TRACE mg/dL (NEG); LYMPHOCYTE # 1.7 TH/MM3 (1.0-4.8); MEAN CELL VOLUME 91.8 FL (80.0-100.0); MEAN CORPUSCULAR HEMOGLOBIN 30.7 PG (27.0-34.0); MEAN CORPUSCULAR HGB CONC 33.4 % (32.0-36.0); MONO % 7.5 % (0.0-8.0); NEUT % 54.6 % (16.0-70.0); NITRITE,URINE NEG (NEG); PLATELET COUNT 238 TH/MM3 (150-450); RED BLOOD COUNT 4.53 MIL/MM3 (4.00-5.30); RED CELL DISTRIBUTION WIDTH 12.9 % (11.6-17.2); WHITE BLOOD COUNT 4.7 TH/MM3 (4.0-11.0)
[2017-06-27 01:41] LABS: BACTERIA, URINE OCC /hpf; CHLORIDE 107 MEQ/L (98-107); COMMENT (UR) CULT NOT INDICATED; CULTURE IF INDICATED CULT NOT INDICATED; POTASSIUM 3.9 MEQ/L (3.5-5.1); RBC, URINE 0-2 /hpf (0-3); SODIUM (NA) 140 MEQ/L (136-145); URINE COLOR YELLOW (YELLW/STRAW); WBC, URINE 0-2 /hpf (0-5)
[2017-06-27 01:45] LABS: ANION GAP 6 MEQ/L (5-15); BICARBONATE 26.9 MEQ/L (21.0-32.0); BLOOD UREA NITROGEN 13 MG/DL (7-18)
[2017-06-27 01:48] LABS: ALT (GPT) 22 U/L (10-53); AST (GOT) 17 U/L (15-37); GLOMERULAR FILTRATION RATE 77 ML/MIN (>89)
[2017-06-27 01:50] LABS: TOTAL BILIRUBIN ADULT 0.4 MG/DL (0.2-1.0)
[2017-06-27 01:51] LABS: ALKALINE PHOSPHATASE 80 U/L (45-117)
[2017-06-27] MEDS ORDERED: IOHEXOL 350 MG/ML 10 ML VIAL (for RAD DIAG) IV ONE (01:57)
[2017-06-27 02:54] VITALS: BP 87/55; PULSE 69; RESP 18; O2SAT 96
--- NOTE | 2017-06-27 02:54 | RADRPT ---
EXAM DATE/TIME: 06/27/2017 02:03 [facility] COMPARISON: No previous studies available for comparison. INDICATIONS : Left upper quad pain. Nausea and vomiting for one week. IV CONTRAST: 96 cc Omnipaque 350 (iohexol) IV ORAL CONTRAST: No oral contrast ingested. RADIATION DOSE: 5.98 CTDIvol (mGy) MEDICAL HISTORY : Gastroesophageal reflux disease. SURGICAL HISTORY : section. Fusion, lumbar.Cholecystectomy. ENCOUNTER: Initial ACUITY: 1 week PAIN SCALE: 6/10 LOCATION: Left upper quadrant TECHNIQUE: Volumetric scanning of the abdomen and pelvis was performed. Using automated exposure control and ad justment of the mA and/or kV according to patient size, radiation dose was kept as low as reasonably achievable to obtain optimal diagnostic quality images. DICOM format image data is available electro nically for review and comparison. FINDINGS: LOWER LUNGS: The visualized lower lungs are clear. LIVER: Homogeneous density without lesion. There is no dilation of the biliary tree. Cholecystectomy clips. Hepatic low-density seen in the right lobe, likely benign cysts. SPLEEN: Normal size without lesion. PANCREAS: Within normal limits. KIDNEYS: Normal in size and shape. There is no mass, stone or hydronephrosis. ADRENAL GLANDS: Within normal limits. VASCULAR: There is no aortic aneurysm. BOWEL/MESENTERY: The stomach, small bowel, and colon demonstrate no acute abnormality. There is no free intraperitone al air or fluid. Scattered diverticulosis. Normal appendix. ABDOMINAL WALL: Within normal limits. RETROPERITONEUM: There is no lymphadenopathy. BLADDER: No wall thickening or mass. REPRODUCTIVE: Within normal limits. INGUINAL: There is no lymphadenopathy or hernia. MUSCULOSKELETAL: Mild degenerative changes and scoliosis. CONCLUSION: 1. Scattered diverticulosis without diverticulitis. 2. Status post cholecystectomy. 3. Hepatic low-density likely benign. Jacky Jackson MD on June 27, 2017 at 2:51 Board Certified Radiologist. This report was verified electronically.
[2017-06-27] MEDS ORDERED: SODIUM CHLOR 0.9% 1000 ML INJ 1,000 ML IV ONE (03:00)
[2017-06-27] MEDS ORDERED: PROM25TA10 PO (03:25)
--- NOTE | 2017-06-27 03:26 | PD ---
HPI Chief Complaint: GI Complaint Time Seen by Provider: 00:42 Travel History International Travel<30 days: No Contact w/Intl Traveler<30days: No Traveled to known affect area: No History of Present Illness HPI 57-year-old female presents to the emergency department by private transportation for complaint of one week of nausea vomiting diarrhea and abdominal pain. Patient states pain is left-sided abdominal pain and left flank. Patient denies fever chills cough congestion chest pain palpitations sweats referred neck jaw back shoulder arm pain also denies any dysuria frequency urgency dysuria or prior history of kidney stones. Patient states symptoms have been unchanged not improving with the past several days. No syncope or near syncope. Patient denies any skin rash or joint pain or swelling. Patient rates her pain 8/10 intensity. PFSH Past Medical History Narrative Medical Anxiety depression hypertension dyslipidemia GERD cholecystectomy back surgery tobaccoism Anxiety: Yes Depression: Yes Heart Rhythm Problems: No Cardiac Catheterization: No Cardiovascular Problems: No High Cholesterol: Yes Congestive Heart Failure: No Diminished Hearing: Yes ("diminished") GERD: Yes Headaches: Yes Heparin Induced Thrombocytopen: No Hypertension: No Musculoskeletal: Yes (chronic back pain) Immunizations Current: Yes Migraines: Yes Tetanus Vaccination: > 5 Years Influenza Vaccination: No ?: Unknown Menopausal: Yes : 4 Para: 4 Miscarriage: 0 : 1 Past Surgical History Section: Yes (1991 and 1992) Cholecystectomy: Yes Coronary Artery Bypass Graft: No Other Surgery: Yes ("1988 and 1990,two disc surgeries") Family History Family Myocardial Infarction: Yes Social History Alcohol Use: No Tobacco Use: Yes (8 CIG/DAY) Substance Use: No Allergies-Medications (Allergen,Severity, Reaction): Coded Allergies: Codeine (Verified Adverse Reaction, Severe, "Tears my stomach up, nausea and itchiness", 06/27/17) Reported Meds & Prescriptions Reported Meds & Active Scripts Active Phenergan (Promethazine HCl) 25 Mg Tablet 25 Mg PO Q6H PRN Mobic (Meloxicam) 15 Mg Tab 15 Mg PO DAILY Ativan (Lorazepam) 1 Mg Tab 1 Mg PO DAILY PRN Reported Lexapro (Escitalopram Oxalate) 10 Mg Tab 10 Mg PO DAILY Abilify (Aripiprazole) 2 Mg Tab 2 Mg PO DAILY Review of Systems Except as stated in HPI: all other systems reviewed are Neg General / Constitutional: No: Fever, Chills HENT: No: Congestion Cardiovascular: No: Chest Pain or Discomfort, Palpitations, Diaphoresis, Syncope Respiratory: No: Shortness of Breath Gastrointestinal: Positive: Nausea, Vomiting, Diarrhea, Abdominal Pain, No: Hematemesis, Hematochezia, Loss of Appetite Genitourinary: No: Urgency, Frequency, Dysuria, Flank Pain Musculoskeletal: No: Myalgias, Arthralgias Skin: No Rash Neurologic: No: Weakness, Dizziness, Syncope Psychiatric: No: Anxiety Hematologic/Lymphatic: No: Easy Bruising Physical Exam Narrative GENERAL: Well-developed well-nourished female in no acute distress no respiratory distress SKIN: Warm and dry. HEAD: Normocephalic. EYES: No scleral icterus. No injection or drainage. NECK: Supple, trachea midline. No JVD or lymphadenopathy. CARDIOVASCULAR: Regular rate and rhythm without murmurs, gallops, or rubs. RESPIRATORY: Breath sounds equal bilaterally. No accessory muscle use. GASTROINTESTINAL: Abdomen soft, mild epigastric and left upper quadrant tenderness to palpation without guarding or rebound no palpable pulsatile mass, nondistended. MUSCULOSKELETAL: No cyanosis, or edema. BACK: Nontender without obvious deformity. No CVA tenderness. Data Data Last Documented VS Vital Signs Date Time Temp Pulse Resp B/P Pulse Ox O2 Delivery O2 Flow Rate FiO2 06/27/17 02:54 69 18 87/55 96 Room Air 8 00:37 98.1 Orders Complete Blood Count With Diff (06/27/17 00:42) Comprehensive Metabolic Panel (06/27/17 00:42) Lipase (06/27/17 00:42) Urinalysis - C+S If Indicated (06/27/17 00:42) Ct Abd/Pel W Iv Contrast(Rout) (06/27/17 00:42) Iv Access Insert/Monitor (06/27/17 00:42) Ecg Monitoring (06/27/17 00:42) Oximetry (06/27/17 00:42) Ondansetron Inj (Zofran Inj) (06/27/17 00:45) Sodium Chlor 0.9% 1000 Ml Inj (Ns 1000 M (06/27/17 00:42) Sodium Chloride 0.9% Flush (Ns Flush) (06/27/17 00:45) Electrocardiogram (06/27/17 00:42) Chest, Single Ap (06/27/17 00:42) Ketorolac Inj (Toradol Inj) (06/27/17 00:45) Iohexol 350 Inj (Omnipaque 350 Inj) (06/27/17 01:57) Sodium Chlor 0.9% 1000 Ml Inj (Ns 1000 M (06/27/17 03:00) Troponin I (06/27/17 01:20) Labs Laboratory Tests Test 06/27/17 01:20 White Blood Count 4.7 TH/MM3 Red Blood Count 4.53 MIL/MM3 Hemoglobin 13.9 GM/DL Hematocrit 41.6 % Mean Corpuscular Volume 91.8 FL Mean Corpuscular Hemoglobin 30.7 PG Mean Corpuscular Hemoglobin 33.4 % Concent Red Cell Distribution Width 12.9 % Platelet Count 238 TH/MM3 Mean Platelet Volume 7.7 FL Neutrophils (%) (Auto) 54.6 % Lymphocytes (%) (Auto) 36.0 % Monocytes (%) (Auto) 7.5 % Eosinophils (%) (Auto) 1.5 % Basophils (%) (Auto) 0.4 % Neutrophils # (Auto) 2.5 TH/MM3 Lymphocytes # (Auto) 1.7 TH/MM3 Monocytes # (Auto) 0.4 TH/MM3 Eosinophils # (Auto) 0.1 TH/MM3 Basophils # (Auto) 0.0 TH/MM3 CBC Comment DIFF FINAL Differential Comment Urine Color YELLOW Urine Turbidity CLEAR Urine pH 6.0 Urine Specific [place] 1.010 Urine Protein NEG mg/dL Urine Glucose (UA) NEG mg/dL Urine Ketones TRACE mg/dL Urine Occult Blood TRACE Urine Nitrite NEG Urine Bilirubin NEG Urine Leukocyte Esterase NEG Urine RBC 0-2 /hpf Urine WBC 0-2 /hpf Urine Squamous Epithelial 6-8 /hpf Cells Urine Bacteria OCC /hpf Microscopic Urinalysis Comment CULT NOT INDICATED Sodium Level 140 MEQ/L Potassium Level 3.9 MEQ/L Chloride Level 107 MEQ/L Carbon Dioxide Level 26.9 MEQ/L Anion Gap 6 MEQ/L Blood Urea Nitrogen 13 MG/DL Creatinine 0.78 MG/DL Estimat Glomerular Filtration 77 ML/MIN Rate Random Glucose 97 MG/DL Calcium Level 9.8 MG/DL Total Bilirubin 0.4 MG/DL Aspartate Amino Transf 17 U/L (AST/SGOT) Alanine Aminotransferase 22 U/L (ALT/SGPT) Alkaline Phosphatase 80 U/L Troponin I LESS THAN 0.02 NG/ML Total Protein 7.8 GM/DL Albumin 4.2 GM/DL Lipase 198 U/L MDM Medical Decision Making Medical Screen Exam Complete: Yes Emergency Medical Condition: Yes Medical Record Reviewed: Yes Interpretation(s) Urinalysis occasional bacteria6-8 squamous epithelial cells; culture not indicated Troponin I: Less than 0.02, not elevated EKG normal sinus rhythm rate [address] elevation injury pattern or ectopy noted Last Impressions Chest X-Ray 06/27/1741 Signed Impressions: Service Date/Time: Tuesday, June 27, 2017 00:57 - CONCLUSION: No acute disease. Jacky Jackson MD Abdomen/Pelvis CT 06/27/1741 Signed Impressions: Service Date/Time: Tuesday, June 27, 2017 02:03 - CONCLUSION: 1. Scattered diverticulosis without diverticulitis. 2. Status post cholecystectomy. 3. Hepatic low-density likely benign. Jacky Jackson MD CBC & BMP Diagram 06/27/17 01:20 Vital Signs Date Time Temp Pulse Resp B/P Pulse Ox O2 Delivery O2 Flow Rate FiO2 06/27/17 02:54 69 18 87/55 96 Room Air 06/27/17 02:11 18 06/27/17 01:24 98 06/27/17 00:37 18 06/27/17 00:37 98.1 79 18 126/76 98 Room Air 06/27/17 00:00 97.5 79 20 139/83 98 06/26/17 22:35 97.5 79 20 139/83 98 Differential Diagnosis Gastroenteritis, dehydration, electrolyte disturbance, ACS, pancreatitis, diverticulitis, UTI, ischemic colitis Narrative Course IV access obtained specimens collected and sent for resulting patient appears to be in no distress or discomfort has mild tenderness to palpation in the epigastrium left upper quadrant region and periumbilically. There is no guarding or rebound no palpable pulsatile mass. Patient has symmetric pulses bilateral radial and dorsalis pedis pulses. This was collected and sent for resulting. Patient administered 1 L of normal saline. Toradol 30 mg IV imaging study ordered At 3 AM informed by patient's nurse that her blood pressure has decreased to 86/ 55 while sleeping. Patient administered additional liter of normal saline labs reviewed CBC with automated differential values are normal range EKG is sinus rhythm with first-degree AV block but no acute ST elevation or injury pattern change or ectopy, complete metabolic panel was within normal limits urinalysis shows squamous epithelial cells and few bacteria otherwise unremarkable; chest x -ray is in normal range; CT abdomen and pelvis shows diverticulosis without diverticulitis otherwise no acute process; Troponin I level added @3:25 AM blood pressure is 107/63 patient reports she took a milligram of Ativan just prior to arrival to the emergency department her blood pressure normally runs 96/63. It's 4 AM patient is stable feels well and will be encouraged to follow-up with her primary care provider as an outpatient. BP: 124/67 Diagnosis Primary Impression: Gastroenteritis Referrals: Primary Care Physician 2 days Patient Instructions: General Instructions Additional Instructions: Increase fluid hydration Follow clear liquid diet for next 12-24 hours advance diet as tolerated bland/ Juve diet then regular diet avoiding fried and fatty foods Takes Phenergan as prescribed as needed for nausea and/or vomiting Monitor temperature for fever take acetaminophen/Tylenol every 4 hours as needed for fever 100.4F or greater and/or ibuprofen/Advil/Motrin every 6-8 hours as needed for fever 100.4F or greater Med/Other Pt SpecificInfo: Prescription(s) given Scripts Promethazine (Phenergan)25 Mg [id number] Mg PO Q6H PRN (NAUSEA OR VOMITING) #10 TAB Ref 0 Prov:Sydnie Pemberton MD 06/27/17 Sydnie Pemberton MD Jun 27, 2017 03:26
[2017-06-27 04:00] VITALS: BP 124/67; PULSE 74; RESP 18; O2SAT 99
--- NOTE | 2017-06-27 17:19 | EKG ---
Date Performed: 06/27/2017 Time Performed: 01:02:16 PTAGE: 57 years EKG: Sinus rhythm WITH FIRST DEGREE AV BLOCK ABNORMAL ECG Compared to prior tracing no significant change PREVIOUS TRACING : 02/26/2017 18.35 DOCTOR: Antonio Torres Interpretating Date/Time 06/27/2017 17:16:44
== END 2017-06-27 04:46 | disposition home or self-care (01) ==
LOC: PHED 22:30
DX: K52.9 Noninfective gastroenteritis and colitis, unspecified (principal); E78.5 Hyperlipidemia, unspecified; F17.210 Nicotine dependence, cigarettes, uncomplicated; R94.31 Abnormal electrocardiogram [ECG] [EKG]
CPT/HCPCS: 71010; 74177; 80053; 81001; 83690; 84484; 85025; 93005; 96361; 96374; 96375; 99285; J1885; J2405; J7030; Q9967

== ENCOUNTER 2017-08-06 12:17 | Emergency (ER) | payer OTHER ==
[~2017-08-06] VITALS: Ht 177.8 cm; Wt 64.0 kg
[~2017-08-06 12:17] MED LIST changes: +ABIL2TAB2 PO; +LEXA10TA PO; +PROM25TA10 PO
[2017-08-06 12:26] VITALS: BP 122/72; PULSE 89; RESP 22; TEMP 98.2; O2SAT 96
[2017-08-06] MEDS ORDERED: SODIUM CHLOR 0.9% 1000 ML INJ 1,000 ML IV ONE (13:00)
[2017-08-06] MEDS ORDERED: ONDANSETRON HCL 4 MG/2 ML VIAL IV PUSH ONE ×2 (13:00→14:15)
[2017-08-06] MEDS ORDERED: HYDROmorphone HCL PF 1 MG/ML VIAL IV PUSH ONE (13:00)
[2017-08-06 13:08] LABS: AUTOMATED NEUTROPHIL # 3.5 TH/MM3 (1.8-7.7); BASOPHIL # 0.1 TH/MM3 (0-0.2); BASOPHIL % 1.5 % (0.0-2.0); EOSINOPHIL % 0.9 % (0.0-4.0); HEMATOCRIT 38.8 % (35.0-46.0); HEMO FLAGS DIFF FINAL; LYMPH % 19.5 % (9.0-44.0); MEAN CORPUSCULAR HEMOGLOBIN 31.9 PG (27.0-34.0); MEAN CORPUSCULAR HGB CONC 34.7 % (32.0-36.0); NEUT % 71.1 % (16.0-70.0); PLATELET COUNT 273 TH/MM3 (150-450); RED BLOOD COUNT 4.22 MIL/MM3 (4.00-5.30); RED CELL DISTRIBUTION WIDTH 12.5 % (11.6-17.2)
[2017-08-06 13:09] LABS: BLOOD, URINE NEG (NEG); GLUCOSE,URINE NEG (NEG); KETONE, URINE NEG (NEG); NITRITE,URINE NEG (NEG)
[2017-08-06 13:16] LABS: METHOD OF COLLECTION CLEAN CATCH
[2017-08-06 13:17] LABS: COMMENT (UR) CULT NOT INDICATED; CULTURE IF INDICATED CULT NOT INDICATED; SQUAMOUS EPITHELIAL CELL URINE 0-5 /hpf (0-5); URINE COLOR YELLOW (YELLW/STRAW); WBC, URINE 0-2 /hpf (0-5)
--- NOTE | 2017-08-06 13:17 | PD ---
HPI Chief Complaint: Abdominal Pain Time Seen by Provider: 12:42 Travel History International Travel<30 days: No Contact w/Intl Traveler<30days: No Traveled to known affect area: No History of Present Illness HPI This is a 57-year-old female who presents to the emergency department with left upper quadrant abdominal pain that's been going on for 3 days, intermediate, severe at maximum, associated with nausea and some loose stools. She's been having 2 diarrhea stools per day. She denies any fevers or chills. She no longer has her menstrual cycle. She says she seen a boom [facility] and is scheduled for an upper GI series and a colonoscopy but she hasn't had these done yet. She did come in to the emergency department one month ago for similar symptoms. She says for one month she's been having intermittent pains very similar to this but over the past several days Misael and worse. She doesn' t a history of a cholecystectomy in the past and she has a history of anxiety and depression. PFSH Past Medical History Anxiety: Yes Depression: Yes Heart Rhythm Problems: No Cardiac Catheterization: No Cardiovascular Problems: No High Cholesterol: Yes Congestive Heart Failure: No Diminished Hearing: Yes ("diminished") GERD: Yes Headaches: Yes Heparin Induced Thrombocytopen: No Hypertension: No Musculoskeletal: Yes (chronic back pain) Immunizations Current: Yes Migraines: Yes Tetanus Vaccination: < 5 Years Influenza Vaccination: No ?: Not Menopausal: Yes : 4 Para: 4 Miscarriage: 0 : 1 Past Surgical History Section: Yes (1991 and 1992) Cholecystectomy: Yes Coronary Artery Bypass Graft: No Other Surgery: Yes ("1988 and 1990,two disc surgeries") Family History Family Myocardial Infarction: Yes Social History Alcohol Use: No Tobacco Use: Yes (11/17 PPD) Substance Use: No Allergies-Medications (Allergen,Severity, Reaction): Coded Allergies: codeine (Unverified Adverse Reaction, Severe, "Tears my stomach up, nausea and itchiness", 08/06/17) Reported Meds & Prescriptions Reported Meds & Active Scripts Active Bentyl (Dicyclomine HCl) 10 Mg Cap 10 Mg PO QID PRN Ativan (Lorazepam) 1 Mg Tab 1 Mg PO DAILY PRN Reported Lexapro (Escitalopram Oxalate) 10 Mg Tab 5 Mg PO DAILY Review of Systems Except as stated in HPI: all other systems reviewed are Neg Physical Exam Narrative GENERAL: Uncomfortable appearing, writhing in bed SKIN: Focused skin assessment warm and dry. HEAD: Atraumatic. Normocephalic. EYES: Pupils equal and round. No injection or drainage. ENT: Moist mucous membranes NECK: Trachea midline. CARDIOVASCULAR: Regular rate and rhythm. No murmur appreciated. RESPIRATORY: Clear to auscultation. Breath sounds equal bilaterally. GASTROINTESTINAL: Abdomen soft, tender to palpation in the left upper quadrant with no rebound or guarding. MUSCULOSKELETAL: No focal lumbar vertebral spinal tenderness NEUROLOGICAL: Awake and alert. No obvious cranial nerve deficits. Moving all extremities. PSYCHIATRIC: Appropriate mood and affect; insight and judgment normal. Data Data Last Documented VS Vital Signs Date Time Temp Pulse Resp B/P (MAP) Pulse Ox O2 Delivery O2 Flow Rate FiO2 08/06/17 14:05 76 18 121/65 (83) 98 Room Air 08/06/17 12:26 98.2 Orders Orders Complete Blood Count With Diff (08/06/17 12:49) Comprehensive Metabolic Panel (08/06/17 12:49) ^ Insert Iv (08/06/17 12:49) Urinalysis - C+S If Indicated (08/06/17 12:49) Lipase (08/06/17 12:49) Hydromorphone Pf Inj (Dilaudid Pf Inj) (08/06/17 13:00) Sodium Chlor 0.9% 1000 Ml Inj (Ns 1000 M (08/06/17 13:00) Ondansetron Inj (Zofran Inj) (08/06/17 13:00) Electrocardiogram (08/06/17 ) Ct Abd/Pel W Iv Contrast(Rout) (08/06/17 ) Troponin I (08/06/17 13:00) Lorazepam Inj (Ativan Inj) (08/06/17 14:15) Ondansetron Inj (Zofran Inj) (08/06/17 14:15) Iohexol 350 Inj (Omnipaque 350 Inj) (08/06/17 16:05) Labs Laboratory Tests Test 08/06/17 13:00 White Blood Count 5.0 TH/MM3 Red Blood Count 4.22 MIL/MM3 Hemoglobin 13.5 GM/DL Hematocrit 38.8 % Mean Corpuscular Volume 92.0 FL Mean Corpuscular Hemoglobin 31.9 PG Mean Corpuscular Hemoglobin Concent 34.7 % Red Cell Distribution Width 12.5 % Platelet Count 273 TH/MM3 Mean Platelet Volume 7.8 FL Neutrophils (%) (Auto) 71.1 % Lymphocytes (%) (Auto) 19.5 % Monocytes (%) (Auto) 7.0 % Eosinophils (%) (Auto) 0.9 % Basophils (%) (Auto) 1.5 % Neutrophils # (Auto) 3.5 TH/MM3 Lymphocytes # (Auto) 1.0 TH/MM3 Monocytes # (Auto) 0.4 TH/MM3 Eosinophils # (Auto) 0.0 TH/MM3 Basophils # (Auto) 0.1 TH/MM3 CBC Comment DIFF FINAL Differential Comment Urine Collection Type CLEAN CATCH Urine Color YELLOW Urine Turbidity CLEAR Urine pH 6.0 Urine Specific [place] 1.005 Urine Protein NEG mg/dL Urine Glucose (UA) NEG mg/dL Urine Ketones NEG mg/dL Urine Occult Blood NEG Urine Nitrite NEG Urine Bilirubin NEG Urine Leukocyte Esterase NEG Urine WBC 0-2 /hpf Urine Squamous Epithelial Cells 0-5 /hpf Microscopic Urinalysis Comment CULT NOT INDICATED Urine Collection Time 13:00 Blood Urea Nitrogen 12 MG/DL Creatinine 0.66 MG/DL Random Glucose 120 MG/DL Total Protein 7.4 GM/DL Albumin 3.8 GM/DL Calcium Level 9.4 MG/DL Alkaline Phosphatase 71 U/L Aspartate Amino Transf (AST/SGOT) 25 U/L Alanine Aminotransferase (ALT/SGPT) 22 U/L Total Bilirubin 0.5 MG/DL Sodium Level 138 MEQ/L Potassium Level 4.4 MEQ/L Chloride Level 105 MEQ/L Carbon Dioxide Level 25.2 MEQ/L Anion Gap 8 MEQ/L Estimat Glomerular Filtration Rate 93 ML/MIN Troponin I LESS THAN 0.02 NG/ML Lipase 188 U/L [facility] Medical Decision Making Medical Screen Exam Complete: Yes Emergency Medical Condition: Yes Interpretation(s) Afebrile, no tachycardia, normotensive No leukocytosis Electrolytes are reassuring Troponin is normal Lipase is normal Urinalysis is negative for infection Differential Diagnosis Pancreatitis, nephrolithiasis, pyelonephritis, cholelithiasis, cholecystitis Narrative Course This is a 57-year-old female who presents to the emergency department with left- sided abdominal pain that's been going on for 1 month. She has had a workup for it once before in the emergency department. She does have an outpatient appointment scheduled with a [facility]. She is placed on a monitor and an IV was established. Initially a plan to do just labs and if they were reassuring discharge her home however she became increasingly uncomfortable and anxious here in the emergency Department. I added a troponin and EKG which were reassuring. CT abdomen and pelvis will be obtained given the patient's degree of discomfort. My suspicion is that this all reflects anxiety and that there is an underlying psychiatric component to her presentation. I think it's still very important that she follow-up with a [facility] as an outpatient. If CT is negative I think patient can be discharged home and she has good outpatient follow-up. Diagnosis Primary Impression: Abdominal pain Qualified Codes: R10.12 - Left upper quadrant pain Patient Instructions: General Instructions Additional Instructions: If you develop severe or worsening abdominal pain, fever>100.4, persistent vomiting or inability to eat or drink return to the emergency department immediately. Follow up with your primary care physician in 1-2 days for a check-up. Med/Other Pt SpecificInfo: Prescription(s) given Scripts Dicyclomine (Bentyl) 10 Mg Cap 10 MG PO QID Y for PAIN SCALE 4 TO 10, #20 CAP 0 Refills Prov: Stephanie Landaverde MD 08/06/17 Disposition: 01 DISCHARGE HOME Condition: Stable Stephanie Landaverde MD Aug 06, 2017 13:17
[2017-08-06 13:18] LABS: CHLORIDE 105 MEQ/L (98-107); SODIUM (NA) 138 MEQ/L (136-145)
[2017-08-06 13:21] LABS: ANION GAP 8 MEQ/L (5-15); BICARBONATE 25.2 MEQ/L (21.0-32.0); POTASSIUM 4.4 MEQ/L (3.5-5.1)
[2017-08-06 13:22] LABS: BLOOD UREA NITROGEN 12 MG/DL (7-18)
[2017-08-06 13:24] LABS: ALT (GPT) 22 U/L (10-53); AST (GOT) 25 U/L (15-37); GLOMERULAR FILTRATION RATE 93 ML/MIN (>89)
[2017-08-06 13:26] LABS: TOTAL BILIRUBIN ADULT 0.5 MG/DL (0.2-1.0)
[2017-08-06 13:27] LABS: ALKALINE PHOSPHATASE 71 U/L (45-117)
[2017-08-06 14:05] VITALS: BP 121/65; PULSE 76; RESP 18; O2SAT 98
[2017-08-06] MEDS ORDERED: LORazepam 2 MG/ML VIAL IV PUSH ONE (14:15)
[2017-08-06] MEDS ORDERED: IOHEXOL 350 MG/ML 10 ML VIAL (for RAD DIAG) IVCONTRAST ONE (16:05)
[2017-08-06] MEDS ORDERED: DICY10 PO (16:10)
--- NOTE | 2017-08-06 16:18 | RADRPT ---
EXAM DATE/TIME: 08/06/2017 16:00 [facility] COMPARISON: No previous studies available for comparison. INDICATIONS : Left upper quadrant pain. Diarrhea. IV CONTRAST: 85 cc Omnipaque 350 (iohexol) IV ORAL CONTRAST: No oral contrast ingested. RADIATION DOSE: 7.29 CTDIvol (mGy) MEDICAL HISTORY : Gastroesophageal reflux disease. SURGICAL HISTORY : Cholecystectomy. section. ENCOUNTER: Initial ACUITY: 3 days PAIN SCALE: 8/10 LOCATION: Left upper quadrant TECHNIQUE: Volumetric scanning of the abdomen and pelvis was performed. Using automated exposure control and ad justment of the mA and/or kV according to patient size, radiation dose was kept as low as reasonably achievable to obtain optimal diagnostic quality images. DICOM format image data is available electro nically for review and comparison. FINDINGS: Minimal dependent atelectasis in the lungs. Stable small hepatic cyst right lobe liver compared with June. Previous cholecystectomy. Spleen, adrenals, kidneys and pancreas unremarkable. No free fluid. No bowel obstruction. No adenopathy. No acute bony abnormality. Moderate degenerative change in the lumbar spine. CONCLUSION: 1. No acute findings. Previous cholecystectomy. Small hepatic cyst. Shiva Lopez MD on August 06, 2017 at 16:12 Board Certified Radiologist. This report was verified electronically.
[2017-08-06 16:50] VITALS: BP 100/55; PULSE 65; RESP 16; O2SAT 98
--- NOTE | 2017-08-07 16:58 | EKG ---
Date Performed: 08/06/2017 Time Performed: 13:20:43 PTAGE: 57 years EKG: Sinus rhythm NORMAL ECG Since PREVIOUS TRACING , no significant change noted PREVIOUS TRACIN06/27/2017 01.02 DOCTOR: Dahlia Fair Interpretating Date/Time 08/07/2017 16:57:05
== END 2017-08-06 17:00 | disposition home or self-care (01) ==
LOC: PHED 12:17
DX: R10.12 Left upper quadrant pain (principal); F17.210 Nicotine dependence, cigarettes, uncomplicated; E78.00 Pure hypercholesterolemia, unspecified; Z90.49 Acquired absence of other specified parts of digestive tract
CPT/HCPCS: 74177; 80053; 81001; 83690; 84484; 85025; 93005; 96361; 96374; 96375; 96376; 99285; J1170; J2060; J2405; J7030; Q9967

== ENCOUNTER 2017-08-16 21:56 | Inpatient (IN) | payer OTHER ==
[~2017-08-16] VITALS: Ht 177.8 cm; Wt 74.2 kg
[~2017-08-16 21:56] MED LIST changes: -ABIL2TAB2 PO; +DICY10 PO; -MOBI15TA PO; -PROM25TA10 PO
[2017-08-16 22:05] VITALS: BP 116/77; PULSE 78; RESP 22; TEMP 97.6; O2SAT 93
[2017-08-16 23:34] LABS: AUTOMATED NEUTROPHIL # 4.1 TH/MM3 (1.8-7.7); BASOPHIL % 0.3 % (0.0-2.0); EOSINOPHIL # 0.1 TH/MM3 (0-0.4); EOSINOPHIL % 0.9 % (0.0-4.0); HEMATOCRIT 39.6 % (35.0-46.0); HEMO FLAGS DIFF FINAL; LYMPH % 27.4 % (9.0-44.0); LYMPHOCYTE # 1.8 TH/MM3 (1.0-4.8); MEAN CELL VOLUME 94.8 FL (80.0-100.0); MEAN CORPUSCULAR HEMOGLOBIN 32.3 PG (27.0-34.0); MEAN CORPUSCULAR HGB CONC 34.1 % (32.0-36.0); NEUT % 63.4 % (16.0-70.0); PLATELET COUNT 211 TH/MM3 (150-450); RED BLOOD COUNT 4.17 MIL/MM3 (4.00-5.30); RED CELL DISTRIBUTION WIDTH 13.3 % (11.6-17.2); WHITE BLOOD COUNT 6.4 TH/MM3 (4.0-11.0)
[2017-08-16 23:37] LABS: BLOOD, URINE NEG (NEG); GLUCOSE,URINE NEG (NEG); KETONE, URINE NEG (NEG); NITRITE,URINE NEG (NEG); URINE COLOR COLORLESS (YELLW/STRAW)
--- NOTE | 2017-08-16 23:39 | PD ---
HPI Chief Complaint: GI Complaint Time Seen by Provider: 23:26 Travel History International Travel<30 days: No Contact w/Intl Traveler<30days: No Traveled to known affect area: No History of Present Illness HPI The patient is a 57 year old female who presents to the [facility] emergency department with a history of abdominal pain that began at approximately 5 PM today. It began in her abdomen and then also moved into her back. It is a tightening sensation. It is constant in your back and coming and going in her abdomen. It is similar to the pain that she had evaluated on . She is on medication for her abdominal pain however she cannot recall the name of it. She reports that she has an appointment scheduled on Thursday to have endoscopy and colonoscopy with the GI doctor that she cannot recall the name of. She denies having any n/v associated with this abdominal pain this time. She denies having any diarrhea. She moved her bowels this AM. On review of systems otherwise, the patient denies having any recent fevers, cough, congestion, neck pain, chest pain, shortness of breath, urinary symptoms, or neurologic symptoms. [facility] Past Medical History Narrative Medical The patient's past medical history is significant for hyperlipidemia, chronic back pain, migraine headaches, hyperlipidemia, acid reflux. Anxiety: Yes Depression: Yes Heart Rhythm Problems: No Cardiac Catheterization: No Cardiovascular Problems: No High Cholesterol: Yes Congestive Heart Failure: No Diminished Hearing: Yes ("diminished") GERD: Yes Headaches: Yes Heparin Induced Thrombocytopen: No Hypertension: No Musculoskeletal: Yes (chronic back pain) Immunizations Current: Yes Migraines: Yes ?: Unknown Menopausal: Yes : 4 Para: 4 Miscarriage: 0 : 1 Past Surgical History Narrative Surgical The patient's past surgical history is significant for a , history of cholecystectomy, low back surgery. Section: Yes (1991 and 1992) Cholecystectomy: Yes Coronary Artery Bypass Graft: No Other Surgery: Yes ("1988 and 1990,two disc surgeries") Family History Family Myocardial Infarction: Yes Social History Alcohol Use: No Tobacco Use: Yes (11/17 PPD) Substance Use: No Allergies-Medications (Allergen,Severity, Reaction): Coded Allergies: codeine (Unverified Adverse Reaction, Severe, "Tears my stomach up, nausea and itchiness", 08/16/17) Reported Meds & Prescriptions Reported Meds & Active Scripts Active Ativan (Lorazepam) 1 Mg Tab 1 Mg PO DAILY PRN Review of Systems Except as stated in HPI: all other systems reviewed are Neg General / Constitutional: No: Fever Eyes: No: Visual changes HENT: No: Headaches Cardiovascular: No: Chest Pain or Discomfort Respiratory: No: Shortness of Breath Gastrointestinal: Positive: Abdominal Pain, Indigestion, No: Nausea, Vomiting, Diarrhea, Hematemesis, Hematochezia, Changes in Bowel Habits, Loss of Appetite Genitourinary: No: Dysuria Musculoskeletal: No: Pain Skin: No Rash Neurologic: No: Weakness Psychiatric: No: Depression Endocrine: No: Polydipsia Hematologic/Lymphatic: No: Easy Bruising Physical Exam Narrative General: The patient is a well-developed well-nourished female in no acute distress. Head and Neck exam: Head is normocephalic atraumatic. Eyes: EOMI, pupils are equal round and reactive to light. Nose: Midline septum with pink mucous membranes Mouth: Dentition unremarkable. Moist mucus membranes. Posterior oropharynx is not erythematous. No tonsillar hypertrophy. Uvula midline. Airway patent. Neck: No palpable lymphadenopathy. No nuchal rigidity. No thyromegaly. Cardiovascular: Regular rate and rhythm without murmurs, gallops, or rubs. Lungs: Clear to auscultation bilaterally. No wheezes, rhonchi, or rales. Abdomen: Soft, without tenderness to palpation in all 4 quadrants of the abdomen. No guarding, rebound, or rigidity. Normal bowel sounds are audible. No tenderness on palpation of McBurney's point. Negative Pate's sign. Extremities: No clubbing, cyanosis, or edema. 2+ pulses in all 4 extremities. No calf tenderness on palpation. Back: No spinous process tenderness to palpation. No costovertebral angle tenderness to palpation. Neurologic Exam: Grossly nonfocal. Skin Exam: No rash noted. Intact skin that is warm and dry. Data Data Last Documented VS Vital Signs Date Time Temp Pulse Resp B/P (MAP) Pulse Ox O2 Delivery O2 Flow Rate FiO2 08/17/17 00:56 99 Nasal Cannula 2.00 08/16/17 22:05 97.6 78 22 116/77 (90) Orders Orders Complete Blood Count With Diff (08/16/17 23:11) Comprehensive Metabolic Panel (08/16/17 23:11) Urinalysis - C+S If Indicated (08/16/17 23:11) Ed Urine Pregnancytest Poc (08/16/17 23:11) Iv Access Insert/Monitor (08/16/17 23:11) Oxygen Administration (08/16/17 23:11) Oximetry (08/16/17 23:11) Lipase (08/16/17 23:11) Sodium Chlorid 0.9% 500 Ml Inj (Ns 500 M (08/16/17 23:45) Ketorolac Inj (Toradol Inj) (08/16/17 23:45) Pantoprazole Inj (Protonix Inj) (08/16/17 23:45) Abdomen, Flat & Upright (08/17/17 00:17) Ct Abd/Pel W Iv Contrast(Rout) (08/17/17 01:15) Iohexol 350 Inj (Omnipaque 350 Inj) (08/17/17 01:47) Admit Order (Ed Use Only) (08/17/17 02:51) Labs Laboratory Tests Test 08/16/17 23:20 White Blood Count 6.4 TH/MM3 Red Blood Count 4.17 MIL/MM3 Hemoglobin 13.5 GM/DL Hematocrit 39.6 % Mean Corpuscular Volume 94.8 FL Mean Corpuscular Hemoglobin 32.3 PG Mean Corpuscular Hemoglobin Concent 34.1 % Red Cell Distribution Width 13.3 % Platelet Count 211 TH/MM3 Mean Platelet Volume 8.0 FL Neutrophils (%) (Auto) 63.4 % Lymphocytes (%) (Auto) 27.4 % Monocytes (%) (Auto) 8.0 % Eosinophils (%) (Auto) 0.9 % Basophils (%) (Auto) 0.3 % Neutrophils # (Auto) 4.1 TH/MM3 Lymphocytes # (Auto) 1.8 TH/MM3 Monocytes # (Auto) 0.5 TH/MM3 Eosinophils # (Auto) 0.1 TH/MM3 Basophils # (Auto) 0.0 TH/MM3 CBC Comment DIFF FINAL Differential Comment Urine Color COLORLESS Urine Turbidity CLEAR Urine pH 5.0 Urine Specific [place] 1.003 Urine Protein NEG mg/dL Urine Glucose (UA) NEG mg/dL Urine Ketones NEG mg/dL Urine Occult Blood NEG Urine Nitrite NEG Urine Bilirubin NEG Urine Urobilinogen LESS THAN 2.0 MG/DL Urine Leukocyte Esterase NEG Urine RBC LESS THAN 1 /hpf Urine WBC 1 /hpf Microscopic Urinalysis Comment CULT NOT INDICATED Blood Urea Nitrogen 16 MG/DL Creatinine 0.71 MG/DL Random Glucose 89 MG/DL Total Protein 7.2 GM/DL Albumin 3.9 GM/DL Calcium Level 8.5 MG/DL Alkaline Phosphatase 84 U/L Aspartate Amino Transf (AST/SGOT) 14 U/L Alanine Aminotransferase (ALT/SGPT) 32 U/L Total Bilirubin 0.4 MG/DL Sodium Level 140 MEQ/L Potassium Level 3.7 MEQ/L Chloride Level 106 MEQ/L Carbon Dioxide Level 29.1 MEQ/L Anion Gap 5 MEQ/L Estimat Glomerular Filtration Rate 85 ML/MIN Lipase 206 U/L [facility] Medical Decision Making Medical Screen Exam Complete: Yes Emergency Medical Condition: Yes Medical Record Reviewed: Yes Interpretation(s) Last Impressions Abdomen/Pelvis CT 08/17/17 0115 Signed Impressions: Service Date/Time: Thursday, August 17, 2017 01:45 - CONCLUSION: 1. CT findings support partial small bowel obstruction in the proper clinical setting. Exact etiology of the obstruction uncertain but appears to occur in the right anterior pelvic cavity at the level of the distal ileum. No mass demonstrated. 2. A few diverticula of the sigmoid colon without diverticulitis. Rodger Cardoza MD Abdomen X-Ray 08/17/17 0017 Signed Impressions: Service Date/Time: Thursday, August 17, 2017 00:21 - CONCLUSION: Suspected enteritis, nonspecific. Early or partial small bowel obstruction not excludable. Rodger Cardoza MD Differential Diagnosis Acute pancreatitis, versus acid reflux, versus perforated ulcer, versus constipation, versus urinary tract infection, versus kidney stone Narrative Course During the course of the patients emergency department visit, the patients history, examination, and differential diagnosis were reviewed with the patient. The patient had IV access obtained and blood work sent for analysis. The patient was placed on a cardiac/vascular sonographer with oximetry and blood pressure monitoring. The patient's electronic medical record was reviewed. The patient last had a CT scan done on August 06 which showed no acute abdomen on a, the patient had a CT scan of the abdomen and pelvis also done on June 27 that showed no acute abnormality. We will try to avoid further CT scan imaging due to radiation exposure. Patient's abdominal examination today is benign. The patient will have a simple abdominal flat and upright to evaluate for any signs of bowel obstruction. The patient was initially provided Protonix 40 mg IV, Toradol 15 mg IV, normal saline a 500 mL bolus. The patients laboratory studies were reviewed and remarkable for a CBC that is within normal limits, CMP is remarkable for a GFR of 85, AST 14, urinalysis within normal limits. Radiology studies were reviewed and remarkable for abdominal flat and upright was done which showed a suspected enteritis that is nonspecific, early or partial small bowel obstruction could not be excluded. A scan of the abdomen and pelvis was then ordered. A CT scan of the abdomen and pelvis shows findings that support a partial small bowel obstruction in the proper clinical setting, exact etiology of the obstruction is uncertain but appears to be occurring in the right anterior pelvic cavity at the level of the distal ileum. No mass demonstrated, a few diverticuli of the sigmoid colon without diverticulitis. The patients results were discussed with the patient, including the plan of care. I explained that further testing and/ or monitoring is indicated based on the patients history, examination, and/ or laboratory findings. Therefore, I recommended admission for additional evaluation. The patient expressed understanding and was agreeable with this plan. The patient was admitted to the hospital in stable condition and sent to a bed under the care of the [facility] group Physician Communication Physician Communication The patient's case is discussed with Rodger Brunner who did agree to admit the patient for further evaluation and treatment at this time. Diagnosis Primary Impression: Abdominal pain Qualified Codes: R10.10 - Upper abdominal pain, unspecified Admitting Information Admitting Physician Requests: it Ev Sherwood MD Aug 16, 2017 23:39
[2017-08-16 23:41] LABS: COMMENT (UR) CULT NOT INDICATED; CULTURE IF INDICATED CULT NOT INDICATED
[2017-08-16] MEDS ORDERED: KETOROLAC TROMETHAMINE 30 MG/ML (IVP) VIAL IV PUSH ONE (23:45)
[2017-08-16] MEDS ORDERED: SODIUM CHLORID 0.9% 500 ML INJ 500 ML IV ONE (23:45)
[2017-08-16] MEDS ORDERED: PANTOPRAZOLE SODIUM 40 MG VIAL IV PUSH ONE (23:45)
[2017-08-16 23:49] LABS: ANION GAP 5 MEQ/L (5-15); AST (GOT) 14 U/L (15-37); BICARBONATE 29.1 MEQ/L (21.0-32.0); BLOOD UREA NITROGEN 16 MG/DL (7-18); CHLORIDE 106 MEQ/L (98-107); GLOMERULAR FILTRATION RATE 85 ML/MIN (>89); POTASSIUM 3.7 MEQ/L (3.5-5.1); SODIUM (NA) 140 MEQ/L (136-145)
[2017-08-16 23:52] LABS: ALKALINE PHOSPHATASE 84 U/L (45-117); ALT (GPT) 32 U/L (10-53); TOTAL BILIRUBIN ADULT 0.4 MG/DL (0.2-1.0)
--- NOTE | 2017-08-17 00:41 | RADRPT ---
EXAM DATE/TIME: 08/17/2017 00:21 [facility] COMPARISON: No previous studies available for comparison. INDICATIONS : Upper abdominal pain radiating to back MEDICAL HISTORY : Hypercholesterolemia. Gastroesophageal reflux disease. SURGICAL HISTORY : section. Cholecystectomy. ENCOUNTER: Initial ACUITY: 1 day PAIN SCORE: 8/10 LOCATION: Bilateral Abdomen FINDINGS: Upper limits of normal caliber segments of small bowel are seen in the midabdomen and probably with s ome wall thickening/mucosal fold thickening. No gastric distention. The colon is decompressed. CONCLUSION: Suspected enteritis, nonspecific. Early or partial small bowel obstruction not excludable. Rodger Cardoza MD on August 17, 2017 at 0:39 Board Certified Radiologist. This report was verified electronically.
[2017-08-17 00:56] VITALS: O2SAT 99
[2017-08-17] MEDS ORDERED: IOHEXOL 350 MG/ML 10 ML VIAL (for RAD DIAG) IVCONTRAST ONE (01:47)
--- NOTE | 2017-08-17 02:10 | RADRPT ---
EXAM DATE/TIME: 08/17/2017 01:45 [facility] COMPARISON: ABDOMEN FLAT & UPRIGHT, August 17, 2017, 0:21. CT ABDOMEN & PELVIS W CONTRAST, August 06, 2017, 16:00. INDICATIONS : Upper abdominal pain radiating to the back. IV CONTRAST: 96 cc Omnipaque 350 (iohexol) IV ORAL CONTRAST: No oral contrast ingested. RADIATION DOSE: 5.99 CTDIvol (mGy) MEDICAL HISTORY : None SURGICAL HISTORY : Cholecystectomy. Lower back surgery. ENCOUNTER: Initial ACUITY: 1 day PAIN SCALE: 8/10 LOCATION: Bilateral upper quadrant TECHNIQUE: Volumetric scanning of the abdomen and pelvis was performed. Using automated exposure control and ad justment of the mA and/or kV according to patient size, radiation dose was kept as low as reasonably achievable to obtain optimal diagnostic quality images. DICOM format image data is available electro nically for review and comparison. FINDINGS: LOWER LUNGS: The visualized lower lungs are clear. LIVER: Homogeneous density without solid lesion. 12 mm benign cyst of the caudate lobe again noted. There i s no dilation of the biliary tree. Previous cholecystectomy. SPLEEN: Normal size without lesion. PANCREAS: Within normal limits. KIDNEYS: Normal in size and shape. There is no mass, stone or hydronephrosis. ADRENAL GLANDS: Within normal limits. VASCULAR: There is atherosclerosis of the abdominal aorta. No aneurysm. BOWEL/MESENTERY: Mildly distended small bowel seen, sparing the distal ileum. A few loops of jejunum have mild mucosal fold thickening, presumably reactive. I believe the transition is in the right low anterior pelvic c avity, series 2 image 76. The appendix is normal. There are scattered diverticula of the left side of the colon but no acute inflammatory changes. ABDOMINAL WALL: Small umbilical hernia containing fat only and does not appear to be contributory. RETROPERITONEUM: There is no lymphadenopathy. BLADDER: No wall thickening or mass. REPRODUCTIVE: Within normal limits. INGUINAL: There is no lymphadenopathy or hernia. MUSCULOSKELETAL: No acute bony abnormality demonstrated. CONCLUSION: 1. CT findings support partial small bowel obstruction in the proper clinical setting. Exact etiology of the obstruction uncertain but appears to occur in the right anterior pelvic cavity at the level o f the distal ileum. No mass demonstrated. 2. A few diverticula of the sigmoid colon without diverticulitis. Rodger Cardoza MD on August 17, 2017 at 2:03 Board Certified Radiologist. This report was verified electronically.
[2017-08-17] MEDS ORDERED: SENNOSIDES 8.6 MG TAB PO PRN (03:00)
[2017-08-17] MEDS ORDERED: MAGNESIUM HYDROXIDE SUSP 30 ML CUP PO PRN (03:00)
[2017-08-17] MEDS ORDERED: ONDANSETRON HCL 4 MG/2 ML VIAL IVP PRN (03:00)
[2017-08-17] MEDS ORDERED: LACTULOSE SYRUP 20 GM/30 ML CUP PO PRN (03:00)
[2017-08-17] MEDS ORDERED: ACETAMINOPHEN 325 MG TAB PO PRN (03:00)
[2017-08-17] MEDS ORDERED: NALOXONE HCL 0.4 MG/ML AMP IV PUSH PRN (03:00)
[2017-08-17] MEDS ORDERED: SODIUM CHLORIDE 0.9% FLUSH 10 ML FLUSH IV FLUSH PRN (03:00)
[2017-08-17] MEDS ORDERED: BISACODYL 10 MG SUPP RECTAL PRN (03:00)
[2017-08-17] MEDS ORDERED: LORazepam 1 MG TAB PO ONE (03:30)
[2017-08-17] MEDS ORDERED: REMOVE OLD PATCH T-DERMAL PRN (03:30)
[2017-08-17] MEDS ORDERED: MORPHINE SULFATE 4 MG/ML INJ IV PUSH PRN ×2 (03:30)
[2017-08-17 03:38] VITALS: BP 123/59; PULSE 68; RESP 16; O2SAT 97
[2017-08-17] MEDS: FAMOTIDINE 20 MG/2 ML VIAL IV PUSH SCH ×2 (03:42→14:14)
[2017-08-17] MEDS: SODIUM CHLOR 0.9% 1000 ML INJ 1,000 ML IV SCH ×2 (03:42→14:14)
[2017-08-17] MEDS: HEPARIN SODIUM - SQ 10,000 UNITS/ML VIAL SQ SCH ×2 (03:43→15:00)
[2017-08-17 05:00] VITALS: BP 111/61; PULSE 62; RESP 16; TEMP 96.1; O2SAT 97
[2017-08-17 08:00] VITALS: BP 103/53; PULSE 64; RESP 19; TEMP 97.2; O2SAT 97
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
[2017-08-17] MEDS ORDERED: NICOTINE 7 MG/24 HR PATCH T-DERMAL SCH (09:00)
[2017-08-17] MEDS ORDERED: SODIUM CHLORIDE 0.9% FLUSH 10 ML FLUSH IV FLUSH SCH (09:00)
[2017-08-17 11:59] VITALS: BP 120/63; PULSE 65; RESP 21; TEMP 96.1; O2SAT 98
[2017-08-17 16:00] VITALS: BP 104/65; PULSE 72; RESP 18; TEMP 97.8; O2SAT 98
--- NOTE | 2017-08-17 18:02 | HHI.PR ---
Objective Objective Results - Vital Signs Date Time Temp Pulse Resp B/P (MAP) Pulse Ox O2 Delivery O2 Flow Rate FiO2 08/17/17 11:59 96.1 65 21 120/63 (82) 98 08/17/17 08:00 97.2 64 19 103/53 (70) 97 08/17/17 05:00 96.1 62 16 111/61 (78) 97 08/17/17 03:38 68 16 123/59 (80) 97 Room Air 08/17/17 00:56 99 Nasal Cannula 2.00 08/17/17 00:56 99 Nasal Cannula 08/16/17 22:05 97.6 78 22 116/77 (90) 93 I/O 08/16/17 08/16/17 08/16/17 08/17/17 08/17/17 08/17/17 07:00 15:00 23:00 07:00 15:00 23:00 Intake Total 500 ml Balance 500 ml Intake Oral 0 ml IV Total 500 ml # Voids 1 # Bowel Movements 0 Result Diagram: 08/16/17 2320 08/16/17 2320 Other Results Laboratory Tests Test 08/16/17 23:20 White Blood Count 6.4 Red Blood Count 4.17 Hemoglobin 13.5 Hematocrit 39.6 Mean Corpuscular Volume 94.8 Mean Corpuscular Hemoglobin 32.3 Mean Corpuscular Hemoglobin Concent 34.1 Red Cell Distribution Width 13.3 Platelet Count 211 Mean Platelet Volume 8.0 Neutrophils (%) (Auto) 63.4 Lymphocytes (%) (Auto) 27.4 Monocytes (%) (Auto) 8.0 Eosinophils (%) (Auto) 0.9 Basophils (%) (Auto) 0.3 Neutrophils # (Auto) 4.1 Lymphocytes # (Auto) 1.8 Monocytes # (Auto) 0.5 Eosinophils # (Auto) 0.1 Basophils # (Auto) 0.0 CBC Comment DIFF FINAL Differential Comment Urine Color COLORLESS Urine Turbidity CLEAR Urine pH 5.0 Urine Specific [place] 1.003 Urine Protein NEG Urine Glucose (UA) NEG Urine Ketones NEG Urine Occult Blood NEG Urine Nitrite NEG Urine Bilirubin NEG Urine Urobilinogen LESS THAN 2.0 Urine Leukocyte Esterase NEG Urine RBC LESS THAN 1 Urine WBC 1 Microscopic Urinalysis Comment CULT NOT INDICATED Blood Urea Nitrogen 16 Creatinine 0.71 Random Glucose 89 Total Protein 7.2 Albumin 3.9 Calcium Level 8.5 Alkaline Phosphatase 84 Aspartate Amino Transf (AST/SGOT) 14 Alanine Aminotransferase (ALT/SGPT) 32 Total Bilirubin 0.4 Sodium Level 140 Potassium Level 3.7 Chloride Level 106 Carbon Dioxide Level 29.1 Anion Gap 5 Estimat Glomerular Filtration Rate 85 Lipase 206 Physical Exam Physical Exam pt is seen & examined d/w Rodger, See H&P feels well No more N/V No abd pain Moved BM eager to eat & go home she has appointment w Dr Boateng on thu for EGD & cscope VSS afebrileAxOx3 abd soft NT +ve BS start regular diet, if tolerated than dc home later tonight w out pt f/u w DR Boateng & pcp d/w PT d/w RN pts condition improved sooner than expected Yoselyn Field MD Aug 17, 2017 18:02
[2017-08-17] MEDS ORDERED: REMOVE OLD PATCH T-DERMAL SCH (21:00)
== END 2017-08-17 21:46 | disposition home or self-care (01) | DRG 390 ==
LOC: NEPE 21:56 → NEDA 08-17 02:55 → OBSVTOIN 08-17 03:26 → N06A 08-17 04:48
PROVIDERS: ADMIT Specialist; ATTEND Specialist
DX: K56.600 Partial intestinal obstruction, unspecified as to cause (principal); E78.5 Hyperlipidemia, unspecified; F17.210 Nicotine dependence, cigarettes, uncomplicated; K21.9 Gastro-esophageal reflux disease without esophagitis; N18.2 Chronic kidney disease, stage 2 (mild); Z88.5 Allergy status to narcotic agent
CPT/HCPCS: 74020; 74177; 80053; 81001; 83690; 84703; 85025; 96361; 96374; 96375; C9113; J1644; J1885; J7030; J7040; Q9967

== ENCOUNTER 2017-08-23 15:12 | Emergency (ER) | payer OTHER ==
[~2017-08-23] VITALS: Ht 180.3 cm; Wt 65.0 kg
[~2017-08-23 15:12] MED LIST changes: -DICY10 PO; -LEXA10TA PO
[2017-08-23 15:15] VITALS: BP 117/75; PULSE 102; RESP 18; TEMP 98.3; O2SAT 97
[2017-08-23] MEDS ORDERED: SODIUM CHLOR 0.9% 1000 ML INJ 1,000 ML IV SCH (17:25)
--- NOTE | 2017-08-23 17:29 | PD ---
HPI Chief Complaint: GI Complaint Time Seen by Provider: 17:15 Travel History International Travel<30 days: No Contact w/Intl Traveler<30days: No Traveled to known affect area: No History of Present Illness HPI This is a 57-year-old female who presents for evaluation of constipation. She reports over the past 3 days she has been unable to have a bowel movement. She reports that since yesterday she has had an intermittent mild tightness type of pain in the epigastrium and upper quadrant region. She has had similar pain several times in the past few months. He was seen here in August 17 for evaluation of similar but more severe type of pain. At that time she had a CT of the abdomen and pelvis with IV contrast without oral contrast which showed a possible partial bowel obstruction. She was discharged in the next day as she was feeling improved. She denies nausea, vomiting, flank pain, fevers or chills , dysuria. She called her wardrobe assistant office to see if she could get a prescription for a laxative to help with her constipation and she was referred here. No other complaints. PFSH Past Medical History Anxiety: Yes Depression: Yes Heart Rhythm Problems: No Cancer: No Cardiac Catheterization: No Cardiovascular Problems: No High Cholesterol: Yes Congestive Heart Failure: No Diminished Hearing: Yes ("diminished") Endocrine: No GERD: Yes Genitourinary: No Headaches: Yes Heparin Induced Thrombocytopen: No Hypertension: No Immune Disorder: No Musculoskeletal: Yes (chronic back pain) Neurologic: Yes Psychiatric: Yes Reproductive: No Respiratory: No Immunizations Current: Yes Migraines: Yes ?: Not Menopausal: Yes : 4 Para: 4 Miscarriage: 0 : 1 Past Surgical History Section: Yes (1991 and 1992) Cholecystectomy: Yes Coronary Artery Bypass Graft: No Other Surgery: Yes ("1988 and 1990,two disc surgeries") Family History Family Myocardial Infarction: Yes Social History Alcohol Use: No Tobacco Use: Yes (11/17 PPD) Substance Use: No Allergies-Medications (Allergen,Severity, Reaction): Coded Allergies: codeine (Unverified Adverse Reaction, Severe, "Tears my stomach up, nausea and itchiness", 08/16/17) Reported Meds & Prescriptions Reported Meds & Active Scripts Active Magnesium Citrate Liq (Magnesium Citrate) 300 Ml Liq 300 Ml PO DIRECTED 1 Days Ativan (Lorazepam) 1 Mg Tab 1 Mg PO DAILY PRN Review of Systems Except as stated in HPI: all other systems reviewed are Neg Physical Exam Narrative GENERAL: Well-developed well-nourished female in no acute distress SKIN: Warm and dry. HEAD: Atraumatic. Normocephalic. EYES: Pupils equal and round. No scleral icterus. No injection or drainage. ENT: No nasal bleeding or discharge. Mucous membranes pink and moist. NECK: Trachea midline. No JVD. CARDIOVASCULAR: Regular rate and rhythm. No murmur appreciated. RESPIRATORY: No accessory muscle use. Clear to auscultation. Breath sounds equal bilaterally. GASTROINTESTINAL: Abdomen soft, non-tender, nondistended. Hepatic and splenic margins not palpable. Bowel sounds are present in all 4 quadrants. MUSCULOSKELETAL: No obvious deformities. No clubbing. No cyanosis. No edema. NEUROLOGICAL: Awake and alert. No obvious cranial nerve deficits. Motor grossly within normal limits. Normal speech. PSYCHIATRIC: Appropriate mood and affect; insight and judgment normal. Data Data Last Documented VS Vital Signs Date Time Temp Pulse Resp B/P (MAP) Pulse Ox O2 Delivery O2 Flow Rate FiO2 08/23/17 15:15 98.3 102 18 117/75 (89) 97 Orders Orders Complete Blood Count With Diff (08/23/17 17:25) Comprehensive Metabolic Panel (08/23/17 17:25) Lipase (08/23/17 17:25) Urinalysis - C+S If Indicated (08/23/17 17:25) Abdomen, Flat & Upright (08/23/17 ) Iv Access Insert/Monitor (08/23/17 17:25) Sodium Chlor 0.9% 1000 Ml Inj (Ns 1000 M (08/23/17 17:25) Labs Laboratory Tests Test 08/23/17 07:00 08/23/17 17:30 Urine Color LIGHT-YELLOW Urine Turbidity CLEAR Urine pH 5.5 Urine Specific [place] 1.006 Urine Protein NEG mg/dL Urine Glucose (UA) NEG mg/dL Urine Ketones NEG mg/dL Urine Occult Blood NEG Urine Nitrite NEG Urine Bilirubin NEG Urine Urobilinogen LESS THAN 2.0 MG/DL Urine Leukocyte Esterase NEG Microscopic Urinalysis Comment CULT NOT INDICATED White Blood Count 5.4 TH/MM3 Red Blood Count 4.33 MIL/MM3 Hemoglobin 13.8 GM/DL Hematocrit 40.8 % Mean Corpuscular Volume 94.4 FL Mean Corpuscular Hemoglobin 32.0 PG Mean Corpuscular Hemoglobin Concent 33.9 % Red Cell Distribution Width 13.2 % Platelet Count 205 TH/MM3 Mean Platelet Volume 7.8 FL Neutrophils (%) (Auto) 62.9 % Lymphocytes (%) (Auto) 25.4 % Monocytes (%) (Auto) 10.1 % Eosinophils (%) (Auto) 1.3 % Basophils (%) (Auto) 0.3 % Neutrophils # (Auto) 3.4 TH/MM3 Lymphocytes # (Auto) 1.4 TH/MM3 Monocytes # (Auto) 0.5 TH/MM3 Eosinophils # (Auto) 0.1 TH/MM3 Basophils # (Auto) 0.0 TH/MM3 CBC Comment DIFF FINAL Differential Comment Blood Urea Nitrogen 17 MG/DL Creatinine 0.79 MG/DL Random Glucose 87 MG/DL Total Protein 7.8 GM/DL Albumin 4.3 GM/DL Calcium Level 9.6 MG/DL Alkaline Phosphatase 86 U/L Aspartate Amino Transf (AST/SGOT) 13 U/L Alanine Aminotransferase (ALT/SGPT) 24 U/L Total Bilirubin 0.3 MG/DL Sodium Level 136 MEQ/L Potassium Level 3.8 MEQ/L Chloride Level 100 MEQ/L Carbon Dioxide Level 29.1 MEQ/L Anion Gap 7 MEQ/L Estimat Glomerular Filtration Rate 76 ML/MIN Lipase 183 U/L MDM Medical Decision Making Medical Screen Exam Complete: Yes Emergency Medical Condition: Yes Medical Record Reviewed: Yes Differential Diagnosis Constipation, fecal impaction, obstruction Narrative Course Examination is very reassuring. Her abdomen is soft and nontender. She has bowel sounds present in all 4 quadrants. She has had 2 CTs of the abdomen and pelvis in the past 1 month so this will be deferred currently as her abdominal examination is benign. An abdominal x-ray has been ordered to assess for any possible obstruction. Basic lab work has been ordered. The patient will be given IV fluids. His lab work is unremarkable and her abdomen reveals no acute abnormalities. I discussed the case with Dr. Boateng who recommends magnesium citrate, she will be following up at the office on her regularly scheduled appointment in 2 days. Discussed signs and symptoms that would warrant returning to the emergency room. The patient is stable for discharge. Diagnosis Primary Impression: Constipation Qualified Codes: K59.00 - Constipation, unspecified Additional Impression: Recurrent abdominal pain Referrals: Celestina Boateng MD Additional Instructions: Medication as prescribed. Follow-up with Dr. Boateng as scheduled. Return for any emergent medical conditions. Med/Other Pt SpecificInfo: Prescription(s) given Scripts Magnesium Citrate Liq (Magnesium Citrate Liq) 300 Ml Liq 300 ML PO DIRECTED for 1 Day, BOTTLE 0 Refills Prov: Blair Woodard MD 08/23/17 Disposition: 01 DISCHARGE HOME Condition: Stable Abdirahman Rivas Aug 23, 2017 17:29
[2017-08-23 17:52] LABS: AUTOMATED NEUTROPHIL # 3.4 TH/MM3 (1.8-7.7); BASOPHIL % 0.3 % (0.0-2.0); EOSINOPHIL # 0.1 TH/MM3 (0-0.4); EOSINOPHIL % 1.3 % (0.0-4.0); HEMATOCRIT 40.8 % (35.0-46.0); HEMO FLAGS DIFF FINAL; LYMPH % 25.4 % (9.0-44.0); LYMPHOCYTE # 1.4 TH/MM3 (1.0-4.8); MEAN CELL VOLUME 94.4 FL (80.0-100.0); MEAN CORPUSCULAR HGB CONC 33.9 % (32.0-36.0); MONO % 10.1 % (0.0-8.0); NEUT % 62.9 % (16.0-70.0); PLATELET COUNT 205 TH/MM3 (150-450); RED BLOOD COUNT 4.33 MIL/MM3 (4.00-5.30); RED CELL DISTRIBUTION WIDTH 13.2 % (11.6-17.2); WHITE BLOOD COUNT 5.4 TH/MM3 (4.0-11.0)
[2017-08-23 18:04] LABS: BLOOD, URINE NEG (NEG); GLUCOSE,URINE NEG (NEG); KETONE, URINE NEG (NEG); NITRITE,URINE NEG (NEG); PH, URINE 5.5 (5.0-8.5); URINE COLOR LIGHT-YELLOW (YELLW/STRAW)
[2017-08-23 18:07] LABS: COMMENT (UR) CULT NOT INDICATED; CULTURE IF INDICATED CULT NOT INDICATED
[2017-08-23 18:08] LABS: ANION GAP 7 MEQ/L (5-15); AST (GOT) 13 U/L (15-37); BICARBONATE 29.1 MEQ/L (21.0-32.0); BLOOD UREA NITROGEN 17 MG/DL (7-18); CHLORIDE 100 MEQ/L (98-107); GLOMERULAR FILTRATION RATE 76 ML/MIN (>89); POTASSIUM 3.8 MEQ/L (3.5-5.1); SODIUM (NA) 136 MEQ/L (136-145)
[2017-08-23 18:09] LABS: ALT (GPT) 24 U/L (10-53)
[2017-08-23 18:12] LABS: ALKALINE PHOSPHATASE 86 U/L (45-117); TOTAL BILIRUBIN ADULT 0.3 MG/DL (0.2-1.0)
--- NOTE | 2017-08-23 18:23 | RADRPT ---
EXAM DATE/TIME: 08/23/2017 18:06 [facility] COMPARISON: ABDOMEN FLAT & UPRIGHT, August 17, 2017, 0:21. INDICATIONS : Abdominal pain MEDICAL HISTORY : None. SURGICAL HISTORY : Cholecystectomy. Lower back surgery. ENCOUNTER: Initial ACUITY: 1 week PAIN SCORE: 6/10 LOCATION: Bilateral abdomen FINDINGS: Supine and upright views of the abdomen were performed. The abdominal bowel gas pattern is normal. No air fluid levels are seen. No abnormal masses, calcifications, or organomegaly is seen. The visu alized lower lungs are clear. No evidence of free intraperitoneal gas. The osseous structures are u nremarkable. CONCLUSION: No acute disease. Yvon Ramirez MD on August 23, 2017 at 18:21 Board Certified Radiologist. This report was verified electronically.
[2017-08-23] MEDS ORDERED: MAGNSOL2 PO (18:55)
[2017-08-23 19:22] VITALS: BP 116/59
== END 2017-08-23 19:40 | disposition home or self-care (01) ==
LOC: NEPC 15:12
DX: K59.00 Constipation, unspecified (principal); R10.9 Unspecified abdominal pain; H91.90 Unspecified hearing loss, unspecified ear; F17.210 Nicotine dependence, cigarettes, uncomplicated
CPT/HCPCS: 74020; 80053; 81001; 83690; 85025; 99284; J7030

== ENCOUNTER 2017-10-17 11:03 | Emergency (ER) | payer OTHER ==
[~2017-10-17] VITALS: Ht 152.4 cm; Wt 69.3 kg
[~2017-10-17 11:03] MED LIST changes: +MAGNSOL2 PO
[2017-10-17 11:10] VITALS: BP 143/67; PULSE 83; RESP 20; TEMP 98.8; O2SAT 98
[2017-10-17] MEDS ORDERED: LORA-474 PO (11:21)
[2017-10-17] MEDS ORDERED: OMEP20TA93 PO (11:21)
[2017-10-17] MEDS ORDERED: ORPHENADRINE INJ 60 MG/2 ML AMP IM ONE (11:30)
--- NOTE | 2017-10-17 11:56 | PD ---
HPI Chief Complaint: Musculoskeletal Complaint Time Seen by Provider: 11:16 Travel History International Travel<30 days: No Contact w/Intl Traveler<30days: No Traveled to known affect area: No History of Present Illness HPI Patient is a 57-year-old female presents emergency department for evaluation of left shoulder pain. The patient states she does not remember doing anything this morning but had pain onset approximately 3 hours ago between her spine and her left scapula. She states it hurts her whenever she moves her shoulder and also has a spasmodic effect. Never had pain like this before. She not tried any pain medicine prior to arrival. Denies any injury. States the pain is severe, nonradiating, left shoulder, context as above. PFSH Past Medical History Anxiety: Yes Depression: Yes Heart Rhythm Problems: No Cancer: No Cardiac Catheterization: No Cardiovascular Problems: No High Cholesterol: Yes Congestive Heart Failure: No Diminished Hearing: Yes ("diminished") Endocrine: No GERD: Yes Genitourinary: No Headaches: Yes Heparin Induced Thrombocytopen: No Hypertension: No Immune Disorder: No Musculoskeletal: Yes (chronic back pain) Neurologic: Yes Psychiatric: Yes Reproductive: No Respiratory: No Immunizations Current: Yes Migraines: Yes Influenza Vaccination: No ?: Not Menopausal: Yes : 4 Para: 4 Miscarriage: 0 : 1 Past Surgical History Section: Yes (1991 and 1992) Cholecystectomy: Yes Coronary Artery Bypass Graft: No Other Surgery: Yes ("1988 and 1990,two disc surgeries") Family History Family Myocardial Infarction: Yes Social History Alcohol Use: No Tobacco Use: Yes (11/17 PPD) Substance Use: No Allergies-Medications (Allergen,Severity, Reaction): Coded Allergies: codeine (Unverified Adverse Reaction, Severe, "Tears my stomach up, nausea and itchiness", 10/17/17) Reported Meds & Prescriptions Reported Meds & Active Scripts Active Flexeril (Cyclobenzaprine HCl) 10 Mg Tab 10 Mg PO TID Reported Omeprazole 20 Mg Tab 20 Mg PO DAILY Ativan (Lorazepam) 1 Mg Tab 1 Mg PO Q8H PRN Review of Systems Except as stated in HPI: all other systems reviewed are Neg Physical Exam Narrative GENERAL: Well-developed thin female in minimal discomfort. SKIN: Focused skin assessment warm/dry. HEAD: Atraumatic. Normocephalic. EYES: Pupils equal and round. No scleral icterus. No injection or drainage. ENT: No nasal bleeding or discharge. Mucous membranes pink and moist. NECK: Trachea midline. No JVD. CARDIOVASCULAR: Regular rate and rhythm. No murmur appreciated. RESPIRATORY: No accessory muscle use. Clear to auscultation. Breath sounds equal bilaterally. GASTROINTESTINAL: Abdomen soft, non-tender, nondistended. Hepatic and splenic margins not palpable. MUSCULOSKELETAL: No obvious deformities. No clubbing. No cyanosis. No edema. There is a palpable muscle spasm just underneath the left shoulder blade, no midline CT or L-spine tenderness. There is tenderness when the patient abducts her scapula. 2+ bilateral equal pulses in all 4 extremity's, motor and sensory are normal. There is no gross deformity and no bony tenderness in the left shoulder. NEUROLOGICAL: Awake and alert. No obvious cranial nerve deficits. Motor grossly within normal limits. Normal speech. PSYCHIATRIC: Appropriate mood and affect; insight and judgment normal. Data Data Last Documented VS Vital Signs Date Time Temp Pulse Resp B/P (MAP) Pulse Ox O2 Delivery O2 Flow Rate FiO2 10/17/17 13:12 10/17/17 12:55 67 20 100 10/17/17 11:10 98.8 Orders Orders Orphenadrine Inj (Norflex Inj) (10/17/17 11:30) Electrocardiogram (10/17/17 ) Chest, Pa & Lat (10/17/17 ) Ed Discharge Order (10/17/17 12:56) [facility] Medical Decision Making Medical Screen Exam Complete: Yes Emergency Medical Condition: Yes Differential Diagnosis muscle spasm, ACS unlikely, dissection highly unlikely, strain, sprain, fracture is excluded clinically. Narrative Course Patient 57-year-old female presents emergency Department with atraumatic left shoulder pain. Has a palpable muscle spasm. No radiation to her pain. She is given Norflex and states that this relieved the sharpness in the pain however still present. She states now it seems to be radiating over her deltoid. Reexamined and the pulses continue to be equal. She appears quite comfortable. I recommended EKG and chest x-ray initially the patient states is likely not my heart. I insisted for these basic screening exams and she is in agreement. He screening exams are within normal limits. Discussed symptomatic management follow-up with primary care physician and return to ED criteria. She stable for discharge. Diagnosis Primary Impression: Back spasm Med/Other Pt SpecificInfo: Prescription(s) given Scripts Cyclobenzaprine (Flexeril) 10 Mg Tab 10 MG PO TID for Muscle Spasm, #20 TAB 0 Refills Prov: Ming Mckeon MD 10/17/17 Disposition: 01 DISCHARGE HOME Condition: Stable Ming Mckeon MD Oct 17, 2017 11:56
[2017-10-17] MEDS ORDERED: CYCL10TA PO (12:53)
[2017-10-17 12:55] VITALS: BP 102/72; PULSE 67; RESP 20; O2SAT 100
--- NOTE | 2017-10-17 13:01 | RADRPT ---
EXAM DATE/TIME: 10/17/2017 12:38 [facility] COMPARISON: No previous studies available for comparison. INDICATIONS : Sudden onset left side posterior upper chest area pain today MEDICAL HISTORY : None. SURGICAL HISTORY : None. ENCOUNTER: Initial ACUITY: 1 day PAIN SCORE: 5/10 LOCATION: Left upper chest FINDINGS: PA and lateral views of the chest demonstrate the lungs to be symmetrically aerated without evidence of mass, infiltrate or effusion. The cardiomediastinal contours are unremarkable. Osseous structure s are intact. CONCLUSION: 1. No acute cardiopulmonary disease. Da Escudero MD on October 17, 2017 at 12:58 Board Certified Radiologist. This report was verified electronically.
--- NOTE | 2017-10-18 22:53 | EKG ---
Date Performed: 10/17/2017 Time Performed: 12:16:41 PTAGE: 57 years EKG: Sinus rhythm NORMAL ECG PREVIOUS TRACING : 08/06/2017 13.20 Compared to prior tracing no significant change DOCTOR: Govind Phan Interpretating Date/Time 10/18/2017 22:52:10
== END 2017-10-17 13:17 | disposition home or self-care (01) ==
LOC: PHED 11:03
DX: M62.830 Muscle spasm of back (principal); K21.9 Gastro-esophageal reflux disease without esophagitis; F17.200 Nicotine dependence, unspecified, uncomplicated; Z79.899 Other long term (current) drug therapy
CPT/HCPCS: 71020; 93005; 96372; 99284; J2360

== ENCOUNTER 2017-11-20 11:08 | Observation (INO) | payer SELFPAY ==
[~2017-11-20] VITALS: Ht 177.8 cm; Wt 70.9 kg
[~2017-11-20 11:08] MED LIST changes: +CYCL10TA PO; -MAGNSOL2 PO; +OMEP20TA93 PO
[2017-11-20] MEDS ORDERED: SODIUM CHLOR 0.9% 1000 ML INJ 1,000 ML IV SCH (11:17)
[2017-11-20 11:23] VITALS: BP 144/94; PULSE 83; RESP 16; TEMP 98.3; O2SAT 100
--- NOTE | 2017-11-20 11:25 | PD ---
HPI Chief Complaint: Chest Pain Time Seen by Provider: 11:16 Travel History International Travel<30 days: No Contact w/Intl Traveler<30days: No Traveled to known affect area: No History of Present Illness HPI The patient is a 57-year-old female who presents to the emergency department for chest pain and right upper quadrant abdominal pain. The patient states 2 days ago she developed substernal chest pain that radiated to the epigastrium, was described as tight and squeezing, lasted approximately 15-20 minutes. The patient denied any diaphoresis, shortness of breath, nausea, or vomiting. The patient does have a history of GERD with recent colonoscopy and endoscopy 3 months ago. The patient states the pain occurred at rest, and alleviated on its own. The patient then developed epigastric and right upper quadrant abdominal pain this morning that radiates to the right upper quadrant and is associated with cough that is producing a clear white phlegm. The patient denies any shortness of breath. She denies any history of pulmonary embolism or DVT. She denies any history of CAD and states she had a stress test that was negative for years ago. She denies any history of hypertension or CAD, does note borderline hyperlipidemia but does not take her medications. She also states she is "prediabetic ". She does smoke. She denies any fever, chills, or sweats. The patient has a history of previous cholecystectomy. PFSH Past Medical History Anxiety: Yes Depression: Yes Heart Rhythm Problems: No Cancer: No Cardiac Catheterization: No Cardiovascular Problems: No High Cholesterol: Yes Congestive Heart Failure: No Diminished Hearing: Yes ("diminished") Endocrine: No GERD: Yes Genitourinary: No Headaches: Yes Heparin Induced Thrombocytopen: No Hypertension: No Immune Disorder: No Musculoskeletal: Yes (chronic back pain) Neurologic: Yes Psychiatric: Yes Reproductive: No Respiratory: No Immunizations Current: Yes Migraines: Yes Menopausal: Yes : 4 Para: 4 Miscarriage: 0 : 1 Past Surgical History Section: Yes (1991 and 1992) Cholecystectomy: Yes Coronary Artery Bypass Graft: No Other Surgery: Yes ("1988 and 1990,two disc surgeries") Social History Alcohol Use: No Tobacco Use: Yes (11/17 PPD) Substance Use: No Allergies-Medications (Allergen,Severity, Reaction): Coded Allergies: codeine (Unverified Adverse Reaction, Severe, "Tears my stomach up, nausea and itchiness", 12/2/17) Reported Meds & Prescriptions Reported Meds & Active Scripts Active Flexeril (Cyclobenzaprine HCl) 10 Mg Tab 10 Mg PO TID Reported Omeprazole 20 Mg Tab 20 Mg PO DAILY Ativan (Lorazepam) 1 Mg Tab 1 Mg PO Q8H PRN Review of Systems Except as stated in HPI: all other systems reviewed are Neg General / Constitutional: No: Fever HENT: Positive: Lightheadedness Cardiovascular: Positive: Chest Pain or Discomfort Respiratory: Positive: Cough, No: Shortness of Breath Gastrointestinal: Positive: Abdominal Pain, No: Nausea, Vomiting, Diarrhea Genitourinary: No: Dysuria Musculoskeletal: No: Weakness, Edema Physical Exam Narrative GENERAL: Awake, alert, pleasant 57-year-old female who appears her stated age and is in no acute respiratory distress. SKIN: Focused skin assessment warm/dry. HEAD: Atraumatic. Normocephalic. EYES: Pupils equal and round. No scleral icterus. No injection or drainage. ENT: No nasal bleeding or discharge. Mucous membranes pink and moist. NECK: Trachea midline. No JVD. CARDIOVASCULAR: Regular rate and rhythm. No murmur appreciated. Nontender to palpation. RESPIRATORY: No accessory muscle use. Clear to auscultation. Breath sounds equal bilaterally. GASTROINTESTINAL: Abdomen soft, tender to palpation right upper quadrant and epigastrium. MUSCULOSKELETAL: No obvious deformities. No clubbing. No cyanosis. No edema. Back: No CVA tenderness. NEUROLOGICAL: Awake and alert. No obvious cranial nerve deficits. Motor grossly within normal limits. Normal speech. PSYCHIATRIC: Appropriate mood and affect; insight and judgment normal. Data Data Last Documented VS Vital Signs Date Time Temp Pulse Resp B/P (MAP) Pulse Ox O2 Delivery O2 Flow Rate FiO2 11/20/17 12:23 68 16 99/56 (70) 99 Room Air 11/20/17 11:23 98.3 Orders Orders Complete Blood Count With Diff (11/20/17 11:17) Comprehensive Metabolic Panel (11/20/17 11:17) Lipase (11/20/17 11:17) Urinalysis - C+S If Indicated (11/20/17 11:17) Iv Access Insert/Monitor (11/20/17 11:17) Ecg Monitoring (11/20/17 11:17) Oximetry (11/20/17 11:17) Ondansetron Inj (Zofran Inj) (11/20/17 11:30) Sodium Chlor 0.9% 1000 Ml Inj (Ns 1000 M (11/20/17 11:17) Sodium Chloride 0.9% Flush (Ns Flush) (11/20/17 11:30) Chest, Single Ap (11/20/17 11:17) Famotidine Inj (Pepcid Inj) (11/20/17 11:30) Al-Mag Hy-Si 40-40-4 Mg/Ml Liq (Mag-Al P (11/20/17 11:30) Lidocaine 2% Viscous (Xylocaine 2% Visco (11/20/17 11:30) Morphine Inj (Morphine Inj) (11/20/17 11:45) Creatine Kinase (Cpk) (11/20/17 11:15) Troponin I (11/20/17 11:15) Aspirin Chew (Aspirin Chew) (11/20/17 12:45) Admit Order (Ed Use Only) (11/20/17 12:46) Labs Laboratory Tests Test 11/20/17 11:15 White Blood Count 3.8 TH/MM3 Red Blood Count 4.26 MIL/MM3 Hemoglobin 13.3 GM/DL Hematocrit 39.8 % Mean Corpuscular Volume 93.6 FL Mean Corpuscular Hemoglobin 31.2 PG Mean Corpuscular Hemoglobin Concent 33.3 % Red Cell Distribution Width 12.4 % Platelet Count 228 TH/MM3 Mean Platelet Volume 7.5 FL Neutrophils (%) (Auto) 60.1 % Lymphocytes (%) (Auto) 27.7 % Monocytes (%) (Auto) 9.2 % Eosinophils (%) (Auto) 2.2 % Basophils (%) (Auto) 0.8 % Neutrophils # (Auto) 2.2 TH/MM3 Lymphocytes # (Auto) 1.1 TH/MM3 Monocytes # (Auto) 0.4 TH/MM3 Eosinophils # (Auto) 0.1 TH/MM3 Basophils # (Auto) 0.0 TH/MM3 CBC Comment DIFF FINAL Differential Comment Blood Urea Nitrogen 12 MG/DL Creatinine 0.73 MG/DL Random Glucose 92 MG/DL Total Protein 7.4 GM/DL Albumin 3.8 GM/DL Calcium Level 8.9 MG/DL Alkaline Phosphatase 81 U/L Aspartate Amino Transf (AST/SGOT) 17 U/L Alanine Aminotransferase (ALT/SGPT) 20 U/L Total Bilirubin 0.5 MG/DL Sodium Level 143 MEQ/L Potassium Level 4.0 MEQ/L Chloride Level 107 MEQ/L Carbon Dioxide Level 28.5 MEQ/L Anion Gap 8 MEQ/L Estimat Glomerular Filtration Rate 83 ML/MIN Total Creatine Kinase 63 U/L Troponin I LESS THAN 0.02 NG/ML Lipase 208 U/L MDM Medical Decision Making Medical Screen Exam Complete: Yes Emergency Medical Condition: Yes Medical Record Reviewed: Yes Interpretation(s) EKG reveals normal sinus rhythm with a rate of 79. No ischemic changes noted. Chest x-ray reveals no acute cardiopulmonary disease Last Impressions Chest X-Ray 11/20/17 1117 Signed Impressions: Service Date/Time: Monday, November 20, 2017 11:28 - CONCLUSION: 1. No acute cardiopulmonary disease. Chilo Vogel MD Laboratory Tests Test 11/20/17 11:15 White Blood Count 3.8 TH/MM3 Red Blood Count 4.26 MIL/MM3 Hemoglobin 13.3 GM/DL Hematocrit 39.8 % Mean Corpuscular Volume 93.6 FL Mean Corpuscular Hemoglobin 31.2 PG Mean Corpuscular Hemoglobin Concent 33.3 % Red Cell Distribution Width 12.4 % Platelet Count 228 TH/MM3 Mean Platelet Volume 7.5 FL Neutrophils (%) (Auto) 60.1 % Lymphocytes (%) (Auto) 27.7 % Monocytes (%) (Auto) 9.2 % Eosinophils (%) (Auto) 2.2 % Basophils (%) (Auto) 0.8 % Neutrophils # (Auto) 2.2 TH/MM3 Lymphocytes # (Auto) 1.1 TH/MM3 Monocytes # (Auto) 0.4 TH/MM3 Eosinophils # (Auto) 0.1 TH/MM3 Basophils # (Auto) 0.0 TH/MM3 CBC Comment DIFF FINAL Differential Comment Blood Urea Nitrogen 12 MG/DL Creatinine 0.73 MG/DL Random Glucose 92 MG/DL Total Protein 7.4 GM/DL Albumin 3.8 GM/DL Calcium Level 8.9 MG/DL Alkaline Phosphatase 81 U/L Aspartate Amino Transf (AST/SGOT) 17 U/L Alanine Aminotransferase (ALT/SGPT) 20 U/L Total Bilirubin 0.5 MG/DL Sodium Level 143 MEQ/L Potassium Level 4.0 MEQ/L Chloride Level 107 MEQ/L Carbon Dioxide Level 28.5 MEQ/L Anion Gap 8 MEQ/L Estimat Glomerular Filtration Rate 83 ML/MIN Total Creatine Kinase 63 U/L Troponin I LESS THAN 0.02 NG/ML Lipase 208 U/L Differential Diagnosis Differential diagnosis includes GERD, esophageal spasm, gastritis, retained biliary stone, lower lobe pneumonia, ACS, pulmonary embolism, pleural effusion, pancreatitis. Narrative Course IV was established, labs are drawn and sent, and the patient was placed on cardiac telemetry monitoring and continuous pulse oximetry monitoring. EKG was ordered and interpreted. Chest x-ray was obtained. Troponin and CPK were sent to lab. The patient was administered morphine, Zantac, GI cocktail and placed on IV fluids. EKG revealed sinus rhythm with no ischemic changes. The patient' s pain is very atypical, right sided, and associated with epigastric and right upper quadrant abdominal pain. There is no hypoxia or tachycardia, I doubt pulmonary embolism with no risk factors. The patient's chest x-ray was on unremarkable. LFTs and lipase unremarkable, no evidence of pancreatitis or retained biliary stone. Troponin and CPK were negative. The patient was reevaluated at 12:30 PM, complained once again with substernal chest pain and lightheadedness. The patient does have several risk factors including prediabetes, hyperlipidemia, tobacco use. Therefore, patient will be 23 hour observation to [facility] Physician Communication Physician Communication [facility] to the chest pain center for serial cardiac enzymes and possible stress test. I discussed the patient with Dr. Wiggins who agrees with 23 hour observation. Diagnosis Primary Impression: Chest pain Qualified Codes: R07.9 - Chest pain, unspecified Admitting Information Admitting Physician Requests: Observation Condition: Stable Ethan Maher MD Nov 20, 2017 11:25
[2017-11-20 11:28] LABS: AUTOMATED NEUTROPHIL # 2.2 TH/MM3 (1.8-7.7); BASOPHIL % 0.8 % (0.0-2.0); EOSINOPHIL # 0.1 TH/MM3 (0-0.4); EOSINOPHIL % 2.2 % (0.0-4.0); HEMATOCRIT 39.8 % (35.0-46.0); HEMOGLOBIN 13.3 GM/DL (11.6-15.3); LYMPH % 27.7 % (9.0-44.0); LYMPHOCYTE # 1.1 TH/MM3 (1.0-4.8); MEAN CELL VOLUME 93.6 FL (80.0-100.0); MEAN CORPUSCULAR HEMOGLOBIN 31.2 PG (27.0-34.0); MEAN CORPUSCULAR HGB CONC 33.3 % (32.0-36.0); MEAN PLATELET VOLUME 7.5 FL (7.0-11.0); MONO % 9.2 % (0.0-8.0); MONOCYTE # 0.4 TH/MM3 (0-0.9); NEUT % 60.1 % (16.0-70.0); PLATELET COUNT 228 TH/MM3 (150-450); RED BLOOD COUNT 4.26 MIL/MM3 (4.00-5.30); RED CELL DISTRIBUTION WIDTH 12.4 % (11.6-17.2); WHITE BLOOD COUNT 3.8 TH/MM3 (4.0-11.0)
[2017-11-20] MEDS ORDERED: ONDANSETRON HCL 4 MG/2 ML VIAL IVP ONE (11:30)
[2017-11-20] MEDS ORDERED: ALUMINUM/MAGNESIUM/SIMETH 30 ML CUP PO ONE (11:30)
[2017-11-20] MEDS ORDERED: MORPHINE SULFATE 4 MG/ML INJ IV PUSH ONE (11:30)
[2017-11-20] MEDS ORDERED: SODIUM CHLORIDE 0.9% FLUSH 10 ML FLUSH IV FLUSH PRN ×2 (11:30→13:30)
[2017-11-20] MEDS ORDERED: FAMOTIDINE 20 MG/2 ML VIAL IV PUSH ONE (11:30)
[2017-11-20] MEDS ORDERED: LIDOCAINE VISCOUS 2% SOLN 15 ML UDC PO ONE (11:30)
[2017-11-20 11:33] VITALS: O2SAT 100
[2017-11-20 11:34] LABS: CHLORIDE 107 MEQ/L (98-107); SODIUM (NA) 143 MEQ/L (136-145)
--- NOTE | 2017-11-20 11:35 | RADRPT ---
EXAM DATE/TIME: 11/20/2017 11:28 [facility] COMPARISON: CHEST SINGLE AP, June 27, 2017, 0:57. INDICATIONS : Chest pain and cough MEDICAL HISTORY : None. SURGICAL HISTORY : None. ENCOUNTER: Initial ACUITY: 1 week PAIN SCORE: 6/10 LOCATION: Bilateral chest FINDINGS: A single view of the chest demonstrates the lungs to be symmetrically aerated without evidence of mas s, infiltrate or effusion. The cardiomediastinal contours are unremarkable. Osseous structures are intact. The background interstitium is prominent though this is likely chronic in nature. CONCLUSION: 1. No acute cardiopulmonary disease. Chilo Vogel MD on November 20, 2017 at 11:32 Board Certified Radiologist. This report was verified electronically.
[2017-11-20 11:37] LABS: CALCIUM 8.9 MG/DL (8.5-10.1)
[2017-11-20 11:38] LABS: ALBUMIN 3.8 GM/DL (3.4-5.0); BICARBONATE 28.5 MEQ/L (21.0-32.0); BLOOD UREA NITROGEN 12 MG/DL (7-18); GLUCOSE,RANDOM 92 MG/DL (74-106); LIPASE 208 U/L (73-393)
[2017-11-20 11:41] LABS: ALT (GPT) 20 U/L (10-53); AST (GOT) 17 U/L (15-37); CREATININE 0.73 MG/DL (0.50-1.00); GLOMERULAR FILTRATION RATE 83 ML/MIN (>89)
[2017-11-20 11:42] LABS: TOTAL BILIRUBIN ADULT 0.5 MG/DL (0.2-1.0); TOTAL PROTEIN 7.4 GM/DL (6.4-8.2)
[2017-11-20 11:44] LABS: ALKALINE PHOSPHATASE 81 U/L (45-117)
[2017-11-20] MEDS ORDERED: MORPHINE SULFATE 2 MG/ML INJ IV PUSH ONE ×2 (11:45→14:00)
[2017-11-20 12:00] LABS: TROPONIN I LESS THAN 0.02 NG/ML (0.02-0.05)
[2017-11-20 12:23] VITALS: BP 99/56; PULSE 68; RESP 16; O2SAT 99
[2017-11-20] MEDS ORDERED: ASPIRIN 81 MG CHEW TAB CHEW ONE (12:45)
[2017-11-20] MEDS ORDERED: REGADENOSON INJ 0.4 MG/5 ML SYR IV ONE (12:47)
[2017-11-20] MEDS ORDERED: LORazepam 1 MG TAB PO ONE (13:00)
[2017-11-20 13:03] VITALS: BP 130/77; PULSE 66; RESP 16; O2SAT 98
[2017-11-20 13:07] LABS: BILIRUBIN, URINE NEG (NEG); BLOOD, URINE NEG (NEG); GLUCOSE,URINE NEG (NEG); KETONE, URINE NEG (NEG); NITRITE,URINE NEG (NEG); URINE LEUKOCYTE ESTERASE NEG (NEG)
[2017-11-20 13:14] LABS: SQUAMOUS EPITHELIAL CELL URINE 0-5 /hpf (0-5); URINE COLOR YELLOW (YELLW/STRAW); WBC, URINE 0-2 /hpf (0-5)
[2017-11-20] MEDS ORDERED: ONDANSETRON HCL 4 MG/2 ML VIAL IV PUSH PRN (13:30)
[2017-11-20] MEDS ORDERED: NITROGLYCERIN 0.4 MG SL 25 TABS/BTL SL PRN (13:30)
[2017-11-20] MEDS ORDERED: SODIUM CHLORID 0.9% 500 ML INJ 500 ML IV ONE (14:00)
[2017-11-20 14:36] VITALS: O2SAT 96
[2017-11-20 15:03] LABS: TROPONIN I LESS THAN 0.02 NG/ML (0.02-0.05)
--- NOTE | 2017-11-20 15:32 | HHI.HP ---
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 Patient states that she went for her follow-up appointment with the pickling tank operator because she had a endoscopy done approximately 2 months ago. When she was at the office she was complaining of chest discomfort and they notified her to go to the ER for further evaluation. Patient presented to the emergency department had workup performed with laboratory studies, chest x-ray and all were relatively unremarkable. Patient indicates that her chest pain started yesterday when she is working on the computer which she states it was a constant pain with easing up intermittently noted over the right anterior chest. Apparently he must have improved overnight because then she said today the pain was located in her lower right ribs in which she thought it may have been musculoskeletal in nature. She states that the pain still is a constant discomfort a 3-5 on a pain scale and it would continue to wax and wane. Patient was given morphine in emergency department with complete relief of her discomfort. She went for her follow-up appointment at the GI physician told her to come to the hospital for evaluation. Patient denies any nausea, vomiting, diaphoresis, shortness of breath, dyspnea. Patient's last cardiac workup was done 2011 where she didn't exercise stress test which was unremarkable. Review of Systems Cardiovascular: COMPLAINS OF: Chest pain Except as stated in HPI: all other systems reviewed are Neg Past Family Social History Past Medical History Chronic abdominal discomfort Chronic Back pain Gastroesophageal reflux Anxiety and depression Past Surgical History 2 Cholecystectomy Lumbar spine surgery Reported Medications Reported Meds & Active Scripts Active Flexeril (Cyclobenzaprine HCl) 10 Mg Tab 10 Mg PO TID Reported Omeprazole 20 Mg Tab 20 Mg PO DAILY Ativan (Lorazepam) 1 Mg Tab 1 Mg PO Q8H PRN Allergies: Coded Allergies: codeine (Unverified Adverse Reaction, Severe, "Tears my stomach up, nausea and itchiness", 10/17/17) Family History Reviewed is significant for father having heart disease with myocardial infarction Social History Patient states that she is down a cigarettes a day and she was smoking since she was 18 years old. Denies any alcohol or illicit drugs Physical Exam Vital Signs Vital Signs Date Time Temp Pulse Resp B/P (MAP) Pulse Ox O2 Delivery O2 Flow Rate FiO2 11/20/17 14:36 96 21 11/20/17 14:14 11/20/17 13:03 66 16 130/77 (94) 98 11/20/17 12:23 68 16 99/56 (70) 99 Room Air 11/20/17 11:33 100 Room Air 11/20/17 11:23 98.3 83 16 144/94 (111) 100 Physical Exam GENERAL: Well-developed, well-nourished, in no acute distress. alert and orientated HEENT: Head is normocephalic without any lesions or masses noted. Facial features are symmetric. Eyes: Pupils equal round reactive to light. Extraocular muscles are intact. Conjunctivae were clear. Oropharyngeal: Pharynx without any erythema edema. Tongue is midline without deviation. Buccal mucosa is moist without any masses or lesions NECK: Supple without any masses. Trachea midline no deviation. No JVD, no bruits are appreciated CARDIAC: Regular rhythm, regular rate. S1/S2 are heard. No murmurs gallops or rubs. LUNGS: Clear to auscultation bilaterally. No wheeze, rhonchi or rales. No use of accessory muscles on inspiration or expiration. ABDOMEN: Soft, palpable tenderness noted in the right upper quadrant. Nondistended. Bowel sounds heard in all 4 quadrants. No organomegaly or masses. Negative rebound, negative guarding EXTREMITIES: No edema, pulses are equal bilaterally. No cyanosis or clubbing NEUROLOGY: Mood and affect appear appropriate. Cranial nerves II through XII grossly intact. Muscle strength 5/5 in upper and lower extremities bilaterally. Deep tendon reflexes are 2+ in upper and lower extremities bilaterally. Laboratory Laboratory Tests Test 11/20/17 11:15 11/20/17 12:55 11/20/17 14:20 White Blood Count 3.8 Red Blood Count 4.26 Hemoglobin 13.3 Hematocrit 39.8 Mean Corpuscular Volume 93.6 Mean Corpuscular Hemoglobin 31.2 Mean Corpuscular Hemoglobin Concent 33.3 Red Cell Distribution Width 12.4 Platelet Count 228 Mean Platelet Volume 7.5 Neutrophils (%) (Auto) 60.1 Lymphocytes (%) (Auto) 27.7 Monocytes (%) (Auto) 9.2 Eosinophils (%) (Auto) 2.2 Basophils (%) (Auto) 0.8 Neutrophils # (Auto) 2.2 Lymphocytes # (Auto) 1.1 Monocytes # (Auto) 0.4 Eosinophils # (Auto) 0.1 Basophils # (Auto) 0.0 CBC Comment DIFF FINAL Differential Comment Blood Urea Nitrogen 12 Creatinine 0.73 Random Glucose 92 Total Protein 7.4 Albumin 3.8 Calcium Level 8.9 Alkaline Phosphatase 81 Aspartate Amino Transf (AST/SGOT) 17 Alanine Aminotransferase (ALT/SGPT) 20 Total Bilirubin 0.5 Sodium Level 143 Potassium Level 4.0 Chloride Level 107 Carbon Dioxide Level 28.5 Anion Gap 8 Estimat Glomerular Filtration Rate 83 Total Creatine Kinase 63 60 Troponin I LESS THAN 0.02 LESS THAN 0.02 Lipase 208 Urine Collection Type CLEAN CATCH Urine Color YELLOW Urine Turbidity CLEAR Urine pH 7.0 Urine Specific Shell 1.005 Urine Protein NEG Urine Glucose (UA) NEG Urine Ketones NEG Urine Occult Blood NEG Urine Nitrite NEG Urine Bilirubin NEG Urine Leukocyte Esterase NEG Urine WBC 0-2 Urine Squamous Epithelial Cells 0-5 Microscopic Urinalysis Comment CULT NOT INDICATED Urine Collection Time 12:55 Result Diagram: 11/20/17 1115 11/20/17 1115 Imaging Last Impressions Chest X-Ray 11/20/17 1117 Signed Impressions: Service Date/Time: Monday, November 20, 2017 11:28 - CONCLUSION: 1. No acute cardiopulmonary disease. MD Saw Burnett VTE Risk Assessment [place] VTE Risk Assessment: Mod/High Risk (score >= 2) Caprini Risk Assessment Model Point Value = 1 Point Value = 2 Point Value = 3 Point Value = 5 Age 41-60 Minor surgery BMI > 25 kg/m2 Swollen legs Varicose veins or History of unexplained or recurrent spontaneous Oral contraceptives or hormone replacement Sepsis (< 1 month) Serious lung disease, including pneumonia (< 1 month) Abnormal pulmonary function Acute myocardial infarction Congestive heart failure (< 1 month) History of inflammatory bowel disease Medical patient at bed rest Age 61-74 Arthroscopic surgery Major open surgery (> 45 min) Laparoscopic surgery (> 45 min) Malignancy Confined to bed (> 72 hours) Immobilizing plaster cast Central venous access Age >= 75 History of VTE Family history of VTE Factor V Leiden Prothrombin [id number] Lupus anticoagulant Anticardiolipin antibodies Elevated serum homocysteine Heparin-induced thrombocytopenia Other congenital or acquired thrombophilia Stroke (< 1 month) Elective arthroplasty Hip, pelvis, or leg fracture Acute spinal cord injury (< 1 month) Prophylaxis Regimen Total Risk Factor Score Risk Level Prophylaxis Regimen 0-1 Low Early ambulation 2 Moderate Order ONE of the following: *Sequential Compression Device (SCD) *Heparin 5000 units SQ BID 3-4 Higher Order ONE of the following medications: *Heparin 5000 units SQ TID *Enoxaparin/Lovenox 40 mg SQ daily (WT < 150 kg, CrCl > 30 mL/min) *Enoxaparin/Lovenox 30 mg SQ daily (WT < 150 kg, CrCl > 10-29 mL/min) *Enoxaparin/Lovenox 30 mg SQ BID (WT < 150 kg, CrCl > 30 mL/min) AND/OR *Sequential Compression Device (SCD) 5 or more Highest Order ONE of the following medications: *Heparin 5000 units SQ TID (Preferred with Epidurals) *Enoxaparin/Lovenox 40 mg SQ daily (WT < 150 kg, CrCl > 30 mL/min) *Enoxaparin/Lovenox 30 mg SQ daily (WT < 150 kg, CrCl > 10-29 mL/min) *Enoxaparin/Lovenox 30 mg SQ BID (WT < 150 kg, CrCl > 30 mL/min) AND *Sequential Compression Device (SCD) Assessment and Plan Assessment and Plan Chest discomfort, atypical Patient with minimal risk factors to include age, family history, tobacco use Patient has been ruled out for acute coronary event with serial cardiac enzymes that are negative, Serial EKGs reviewed by myself which shows sinus rhythm with first-degree AV block Nuclear stress test was performed which did not indicate any signs of ischemia and low risk continue aspirin, nitroglycerin as needed Abdominal, chronic laboratory studies are all unremarkable Continue proton pump inhibitor Continue follow-up with GI physician DVT prevention Sequential compression devices Discharge disposition Discharge home in stable condition Activity: Ad shoshana. Diet: Healthy heart diet Medications per medication reconciliation Follow-up primary medical doctor in one week Problem Qualifiers (1) Chest pain: Qualified Codes: R07.9 - Chest pain, unspecified Deandre Foley Nov 20, 2017 15:32
[2017-11-20 16:00] VITALS: BP 105/63; PULSE 78; RESP 14; TEMP 96.2; O2SAT 99
--- NOTE | 2017-11-20 17:59 | HHI.DCPOC ---
Discharge Care Plan Diagnosis: (1) Chest pain Goals to Promote Your Health * To prevent worsening of your condition and complications * To maintain your health at the optimal level Directions to Meet Your Goals Take your medications as prescribed Follow your dietary instruction Follow activity as directed Keep your appointments as scheduled Take your immunizations and boosters as scheduled If your symptoms worsen call your PCP, if no PCP go to Urgent Care Center or Emergency Room Smoking is Dangerous to Your Health. Avoid second hand smoke Call the 24-hour hour crisis hotline for domestic abuse at Deandre Foley Nov 20, 2017 17:59
--- NOTE | 2017-11-20 18:26 | RADRPT ---
EXAM DATE/TIME: 11/20/2017 16:58 [facility] COMPARISON: No previous studies available for comparison. INDICATIONS : Substernal chest pain. Angina. DOSE: 27.3 mCi Tc99m Myoview at stress. 8.8 mCi Tc99m Myoview at rest. 0.4 mg Lexiscan STRESS SYMPTOMS: Lightheadedness. EJECTION FRACTION: > 70% MEDICAL HISTORY : Hypercholesterolemia. Gastroesophageal reflux disease. Diabetes mellitus type 2. SURGICAL HISTORY : Cholecystectomy. ENCOUNTER: Initial ACUITY: 2 days PAIN SCALE: 6/10 LOCATION: Substernal chest TECHNIQUE: The patient underwent pharmacologic stress with infusion of prescribed dose. Continuous ECG tracing was monitored during stress. Gated SPECT imaging was performed after stress and conventional SPECT i maging was performed at rest. The examination was performed on a SPECT/CT scanner, both attenuation and non-corrected datasets were reviewed. FINDINGS: DISTRIBUTION: The maximum perfused segment at stress is in the anterolateral wall. PERFUSION STUDY: The pattern of perfusion at stress is within normal limits. GATED STUDY: There is intact wall motion and thickening without hypokinetic or dyskinetic segments. CONCLUSION: 1. No significant reversibility to suggest ischemia. 2. Normal wall motion and ejection fraction greater than 70%. RISK CATEGORY: Low (<1% Annual Mortality Rate) Shiva Lopez MD on November 20, 2017 at 18:23 Board Certified Radiologist. This report was verified electronically.
[2017-11-20] MEDS ORDERED: SODIUM CHLORIDE 0.9% FLUSH 10 ML FLUSH IV FLUSH SCH (21:00)
--- NOTE | 2017-11-20 22:12 | TR ---
Date Performed: 11/20/2017 Time Performed: 17:26:29 DOCTOR: Dahlia Fair DRUG LIST: CLINICAL HISTORY: REASON FOR TEST: Chest pain REASON FOR ENDING: OBSERVATION: CONCLUSION: Lexiscan stress test was performed under standard four minute protocol. Radionuclid e was injected one minute prior to ending the test. No electrocardiographic abormalities were present to suggest ischemia. Nuclear imaging and interpretation are pending. COMMENTS:
--- NOTE | 2017-11-21 13:17 | EKG ---
Date Performed: 11/20/2017 Time Performed: 11:13:39 PTAGE: 57 years EKG: Atrial abnormality Otherwise within normal limits Since previous tracing, no significant ch germain noted BORDERLINE ECG PREVIOUS TRACING : 10/17/2017 12.16 DOCTOR: Eric Ken Interpretating Date/Time 11/21/2017 13:16:23
--- NOTE | 2017-11-21 13:18 | EKG ---
Date Performed: 11/20/2017 Time Performed: 14:20:55 PTAGE: 57 years EKG: Sinus rhythm WITH FIRST DEGREE AV BLOCK ABNORMAL ECG Compared to PREVIOUS TRACING , [place] interval slightly, atrial abnormality slightly less prominent. PREV IOUS TRACIN11/20/2017 11.13 DOCTOR: Eric Ken Interpretating Date/Time 11/21/2017 13:17:09
== END 2017-11-20 18:55 | disposition home or self-care (01) ==
LOC: PHED 11:08 → PHEDA 12:46 → PH3A 14:12
PROVIDERS: ADMIT Hospitalist; ATTEND Hospitalist
DX: R07.9 Chest pain, unspecified (principal); R94.31 Abnormal electrocardiogram [ECG] [EKG]; E78.5 Hyperlipidemia, unspecified; K21.9 Gastro-esophageal reflux disease without esophagitis; F17.210 Nicotine dependence, cigarettes, uncomplicated; E78.00 Pure hypercholesterolemia, unspecified; Z90.49 Acquired absence of other specified parts of digestive tract
CPT/HCPCS: 71045; 78452; 80053; 81001; 82550; 83690; 84484; 85025; 93005; 93017; 96361; 96374; 96375; 96376; 99285; A9502; G0378; J2270; J2405; J2785; J7030; J7040

== ENCOUNTER 2018-02-09 10:04 | Emergency (ER) | payer SELFPAY ==
[~2018-02-09] VITALS: Ht 177.8 cm; Wt 66.9 kg
[2018-02-09 10:11] VITALS: BP 149/76; PULSE 110; RESP 16; TEMP 97.9; O2SAT 98
[2018-02-09 10:27] LABS: BILIRUBIN, URINE NEG (NEG); BLOOD, URINE NEG (NEG); GLUCOSE,URINE NEG (NEG); KETONE, URINE NEG (NEG); NITRITE,URINE NEG (NEG); URINE COLOR YELLOW (YELLW/STRAW); URINE LEUKOCYTE ESTERASE NEG (NEG)
[2018-02-09 10:31] LABS: SQUAMOUS EPITHELIAL CELL URINE 0-5 /hpf (0-5); WBC, URINE 0-2 /hpf (0-5)
[2018-02-09] MEDS ORDERED: SODIUM CHLOR 0.9% 1000 ML INJ 1,000 ML IV SCH (10:41)
[2018-02-09] MEDS ORDERED: ONDANSETRON HCL 4 MG/2 ML VIAL IVP ONE (10:45)
[2018-02-09] MEDS ORDERED: MORPHINE SULFATE 4 MG/ML INJ IV PUSH ONE (10:45)
[2018-02-09] MEDS ORDERED: SODIUM CHLORIDE 0.9% FLUSH 10 ML FLUSH IV FLUSH PRN (10:45)
--- NOTE | 2018-02-09 10:56 | PD ---
HPI Chief Complaint: Abdominal Pain Time Seen by Provider: 10:34 Travel History International Travel<30 days: No Contact w/Intl Traveler<30days: No Traveled to known affect area: No History of Present Illness HPI Is a 57-year-old woman presents to the emergency department complaining of abdominal pain. She reports that she has had upper abdominal pain that radiates into the back on both sides ongoing for the past week or so.'s been associated with nausea. She states eating anything makes it worse. She has not had the pain before. She otherwise had been feeling well before this. She has a history of a cholecystectomy as well as 2 previous C-sections, no other abdominal surgeries. No history of renal lithiasis. She states her urine was dark so she was drinking lots of fluids to try to help. Symptoms are gotten steadily worse since she came to the emergency department today. She has a history of GERD in the past but states it has been doing really well. Denies any significant NSAID use, or alcohol use. She does smoke. She says she had an endoscopy about a year or so ago which did not show any gastritis or ulcers. History Past Medical History Narrative Medical "Prediabetes" Anxiety/depression GERD Migraines Hyperlipidemia Back surgeries Menopausal: Yes : 4 Para: 4 Social History Alcohol Use: No Tobacco Use: Yes (11/19 PPD) Allergies-Medications (Allergen,Severity, Reaction): Coded Allergies: codeine (Unverified Adverse Reaction, Severe, "Tears my stomach up, nausea and itchiness", 02/09/18) Reported Meds & Prescriptions Reported Meds & Active Scripts Active Review of Systems Except as stated in HPI: all other systems reviewed are Neg Physical Exam Narrative GENERAL: 57-year-old woman, uncomfortable appearing, nontoxic. SKIN: Focused skin assessment warm/dry. HEAD: Atraumatic. Normocephalic. EYES: Pupils equal and round. No scleral icterus. No injection or drainage. ENT: No nasal bleeding or discharge. Mucous membranes pink and moist. NECK: Trachea midline. No JVD. CARDIOVASCULAR: Regular rate and rhythm. No murmur appreciated. RESPIRATORY: No accessory muscle use. Clear to auscultation. Breath sounds equal bilaterally. GASTROINTESTINAL: Abdomen is flat and soft. Minimal epigastric tenderness. No rebound or guarding. MUSCULOSKELETAL: No obvious deformities. No clubbing. No cyanosis. No edema. NEUROLOGICAL: Awake and alert. No obvious cranial nerve deficits. Motor grossly within normal limits. Normal speech. Data Data Last Documented VS Vital Signs Date Time Temp Pulse Resp B/P (MAP) Pulse Ox O2 Delivery O2 Flow Rate FiO2 02/09/18 10:11 97.9 110 16 149/76 (100) 98 Orders Orders Urinalysis - C+S If Indicated (02/09/18 10:10) Complete Blood Count With Diff (02/09/18 10:41) Comprehensive Metabolic Panel (02/09/18 10:41) Lipase (02/09/18 10:41) Ct Abd/Pel W/O Iv Contrast (02/09/18 10:41) Iv Access Insert/Monitor (02/09/18 10:41) Morphine Inj (Morphine Inj) (02/09/18 10:45) Ondansetron Inj (Zofran Inj) (02/09/18 10:45) Sodium Chlor 0.9% 1000 Ml Inj (Ns 1000 M (02/09/18 10:41) Sodium Chloride 0.9% Flush (Ns Flush) (02/09/18 10:45) Pantoprazole Inj (Protonix Inj) (02/09/18 11:15) Morphine Inj (Morphine Inj) (02/09/18 11:15) Labs Laboratory Tests Test 02/09/18 10:15 02/09/18 10:50 Urine Collection Type CLEAN CATCH Urine Color YELLOW Urine Turbidity CLEAR Urine pH 5.0 Urine Specific [place] 1.010 Urine Protein NEG mg/dL Urine Glucose (UA) NEG mg/dL Urine Ketones NEG mg/dL Urine Occult Blood NEG Urine Nitrite NEG Urine Bilirubin NEG Urine Urobilinogen 0.2 MG/DL Urine Leukocyte Esterase NEG Urine WBC 0-2 /hpf Urine Squamous Epithelial Cells 0-5 /hpf Microscopic Urinalysis Comment CULT NOT INDICATED Urine Collection Time 10:22 White Blood Count 5.0 TH/MM3 Red Blood Count 4.86 MIL/MM3 Hemoglobin 15.2 GM/DL Hematocrit 44.9 % Mean Corpuscular Volume 92.5 FL Mean Corpuscular Hemoglobin 31.3 PG Mean Corpuscular Hemoglobin Concent 33.9 % Red Cell Distribution Width 13.0 % Platelet Count 277 TH/MM3 Mean Platelet Volume 8.0 FL Neutrophils (%) (Auto) 61.8 % Lymphocytes (%) (Auto) 27.4 % Monocytes (%) (Auto) 8.0 % Eosinophils (%) (Auto) 2.0 % Basophils (%) (Auto) 0.8 % Neutrophils # (Auto) 3.1 TH/MM3 Lymphocytes # (Auto) 1.4 TH/MM3 Monocytes # (Auto) 0.4 TH/MM3 Eosinophils # (Auto) 0.1 TH/MM3 Basophils # (Auto) 0.0 TH/MM3 CBC Comment DIFF FINAL Differential Comment Blood Urea Nitrogen 10 MG/DL Creatinine 0.88 MG/DL Random Glucose 90 MG/DL Total Protein 8.6 GM/DL Albumin 4.3 GM/DL Calcium Level 9.4 MG/DL Alkaline Phosphatase 101 U/L Aspartate Amino Transf (AST/SGOT) 19 U/L Alanine Aminotransferase (ALT/SGPT) 22 U/L Total Bilirubin 0.4 MG/DL Sodium Level 138 MEQ/L Potassium Level 3.8 MEQ/L Chloride Level 103 MEQ/L Carbon Dioxide Level 28.9 MEQ/L Anion Gap 6 MEQ/L Estimat Glomerular Filtration Rate 67 ML/MIN Lipase 213 U/L [facility] Medical Decision Making Medical Screen Exam Complete: Yes Emergency Medical Condition: Yes Interpretation(s) UA unremarkable LABS: CBC unremarkable CMP is unremarkable Lipase is normal UA is unremarkable CT abdomen and pelvis: No acute findings Differential Diagnosis Renal lithiasis, gastritis, pancreatitis, choledocholithiasis, back pain or compression fracture, other Narrative Course Medical decision making INITIAL: Is a 57-year-old woman who presents to the emergency department complaining of epigastric abdominal pain rating into both flanks. She is acting like a kidney stone but the pain does not appear to be unilateral at all. She did describe some dark urine. Pancreatitis or gastritis also possible. Less likely primary back problems rating into the abdomen. Will check labs, urine, CT of the abdomen, reassess. Diagnosis Primary Impression: Abdominal pain Patient Instructions: General Instructions Additional Instructions: Take medications as prescribed. Follow-up with her primary doctor the next 2-4 days. Return to the emergency department for any new or worsening symptoms. Med/Other Pt SpecificInfo: Prescription(s) given Scripts Sucralfate (Sucralfate) 1 Gram Tab 1 GM PO TID for Duodenal ulcer, #90 TAB 0 Refills on empty stomach Prov: Glynn Hernandez MD 02/09/18 Ondansetron Odt (Ondansetron Odt) 4 Mg Tab 4 MG SL Q8HR Y for Nausea/Vomiting, #12 TAB 0 Refills Prov: Glynn Hernandez MD 02/09/18 Omeprazole (Omeprazole) 40 Mg Cap 40 MG PO DAILY, #30 CAP 0 Refills Prov: Glynn Hernandez MD 02/09/18 Disposition: 01 DISCHARGE HOME Condition: Stable Glynn Hernandez MD Feb 09, 2018 10:56
[2018-02-09 11:00] LABS: AUTOMATED NEUTROPHIL # 3.1 TH/MM3 (1.8-7.7); BASOPHIL % 0.8 % (0.0-2.0); EOSINOPHIL # 0.1 TH/MM3 (0-0.4); HEMATOCRIT 44.9 % (35.0-46.0); HEMOGLOBIN 15.2 GM/DL (11.6-15.3); LYMPH % 27.4 % (9.0-44.0); LYMPHOCYTE # 1.4 TH/MM3 (1.0-4.8); MEAN CELL VOLUME 92.5 FL (80.0-100.0); MEAN CORPUSCULAR HEMOGLOBIN 31.3 PG (27.0-34.0); MEAN CORPUSCULAR HGB CONC 33.9 % (32.0-36.0); MONOCYTE # 0.4 TH/MM3 (0-0.9); NEUT % 61.8 % (16.0-70.0); PLATELET COUNT 277 TH/MM3 (150-450); RED BLOOD COUNT 4.86 MIL/MM3 (4.00-5.30)
[2018-02-09 11:09] LABS: CHLORIDE 103 MEQ/L (98-107); SODIUM (NA) 138 MEQ/L (136-145)
[2018-02-09 11:13] LABS: ALBUMIN 4.3 GM/DL (3.4-5.0); BICARBONATE 28.9 MEQ/L (21.0-32.0); BLOOD UREA NITROGEN 10 MG/DL (7-18); CALCIUM 9.4 MG/DL (8.5-10.1); GLUCOSE,RANDOM 90 MG/DL (74-106)
--- NOTE | 2018-02-09 11:13 | RADRPT ---
EXAM DATE/TIME: 02/09/2018 10:57 [facility] COMPARISON: No previous studies available for comparison. INDICATIONS : Left abdominal pain radiating to back. ORAL CONTRAST: No oral contrast ingested. RADIATION DOSE: 10.39 CTDIvol (mGy) MEDICAL HISTORY : Gastroesophageal reflux disease. SURGICAL HISTORY : Cholecystectomy. section.Lumbar surgery. ENCOUNTER: Initial ACUITY: 1 week PAIN SCALE: 8/10 LOCATION: Left flank TECHNIQUE: Volumetric scanning of the abdomen and pelvis was performed. Using automated exposure control and ad justment of the mA and/or kV according to patient size, radiation dose was kept as low as reasonably achievable to obtain optimal diagnostic quality images. DICOM format image data is available electro nically for review and comparison. FINDINGS: Costophrenic angles are clear. No acute findings in the visualized liver, spleen, adrenals, kidneys or pancreas. Previous cholecyste ctomy. Probable 1.7 cm cyst in right lobe of liver. There is mild constipation. No free air or free fluid. No bowel obstruction. Small calcification seen in the uterus, probably a small calcified fibroid. CONCLUSION: 1. No acute findings. No evidence for obstructive uropathy. Previous cholecystectomy. 2. Mild constipation. 3. Small calcified fibroid in the uterus. Shiva Lopez MD on February 09, 2018 at 11:07 Board Certified Radiologist. This report was verified electronically.
[2018-02-09] MEDS ORDERED: PANTOPRAZOLE SODIUM 40 MG VIAL IV PUSH ONE (11:15)
[2018-02-09] MEDS ORDERED: MORPHINE SULFATE 2 MG/ML INJ IV PUSH ONE (11:15)
[2018-02-09 11:16] LABS: ALT (GPT) 22 U/L (10-53); AST (GOT) 19 U/L (15-37); CREATININE 0.88 MG/DL (0.50-1.00); GLOMERULAR FILTRATION RATE 67 ML/MIN (>89)
[2018-02-09 11:18] LABS: TOTAL BILIRUBIN ADULT 0.4 MG/DL (0.2-1.0); TOTAL PROTEIN 8.6 GM/DL (6.4-8.2)
[2018-02-09 11:19] LABS: ALKALINE PHOSPHATASE 101 U/L (45-117)
[2018-02-09] MEDS ORDERED: ALUMINUM/MAGNESIUM/SIMETH 30 ML CUP PO ONE (11:30)
[2018-02-09] MEDS ORDERED: LIDOCAINE VISCOUS 2% SOLN 15 ML UDC PO ONE (11:30)
[2018-02-09] MEDS ORDERED: ONDA4TAB7 SL (11:32)
[2018-02-09] MEDS ORDERED: OMEP40CA2 PO (11:32)
[2018-02-09] MEDS ORDERED: SUCR1TAB PO (11:32)
[2018-02-09] MEDS ORDERED: DICYCLOMINE HCL 20 MG/2 ML VIAL IM ONE (12:00)
[2018-02-09] MEDS ORDERED: PROCHLORPERAZINE INJ 10 MG/2 ML VIAL IV PUSH ONE (12:15)
[2018-02-09] MEDS ORDERED: diphenhydrAMINE HCL 50 MG/ML VIAL IV PUSH ONE (12:15)
[2018-02-09 13:19] VITALS: BP 137/62
== END 2018-02-09 13:20 | disposition home or self-care (01) ==
LOC: PHED 10:04
DX: R10.10 Upper abdominal pain, unspecified (principal); K59.00 Constipation, unspecified; D25.9 Leiomyoma of uterus, unspecified; R73.03 Prediabetes; E78.5 Hyperlipidemia, unspecified; K21.9 Gastro-esophageal reflux disease without esophagitis; F41.9 Anxiety disorder, unspecified; F32.9 Major depressive disorder, single episode, unspecified; F17.210 Nicotine dependence, cigarettes, uncomplicated; Z90.49 Acquired absence of other specified parts of digestive tract; Z88.5 Allergy status to narcotic agent
CPT/HCPCS: 74176; 80053; 81001; 83690; 85025; 96361; 96372; 96374; 96375; 99285; C9113; J0780; J1200; J2270; J2405; J7030

== ENCOUNTER 2018-04-06 15:14 | Emergency (ER) | payer SELFPAY ==
[~2018-04-06] VITALS: Ht 180.3 cm; Wt 70.0 kg
[~2018-04-06 15:14] MED LIST changes: -CYCL10TA PO; -LORA-474 PO; -OMEP20TA93 PO; +OMEP40CA2 PO; +ONDA4TAB7 SL; +SUCR1TAB PO
[2018-04-06 15:19] VITALS: BP 117/58; PULSE 85; RESP 16; TEMP 98.1; O2SAT 96
--- NOTE | 2018-04-06 16:06 | PD ---
HPI Chief Complaint: Musculoskeletal Complaint Time Seen by Provider: 15:41 Travel History International Travel<30 days: No Contact w/Intl Traveler<30days: No Traveled to known affect area: No History of Present Illness HPI 57-year-old female presents emergency department for evaluation of left calf pain that is been present for 3 days. Says that she noticed the calf swell up and became more painful throughout the last couple of days. Says she her pain is sharp that is worse with walking but decreases slightly with rest. Says she has "shooting pain" from her Achilles to her knee. She denies any numbness or tingling. She does have some decreased range of motion of her ankle secondary to pain. She denies recent travel, surgeries, history of cancer, history of DVT or PE. She has no family history of blood disorders or blood clots. She denies shortness of breath or chest pain. Says she went to urgent care prior to coming to the emergency department today and they recommended she come here to the emergency department for evaluation. PFSH Past Medical History Anxiety: Yes Depression: Yes Heart Rhythm Problems: No Cancer: No Cardiac Catheterization: No Cardiovascular Problems: No High Cholesterol: Yes Congestive Heart Failure: No Diminished Hearing: Yes ("diminished") Endocrine: No GERD: Yes Genitourinary: No Headaches: Yes Heparin Induced Thrombocytopen: No Hypertension: No Immune Disorder: No Implanted Vascular Access Dvce: No Musculoskeletal: Yes (chronic back pain) Neurologic: Yes Psychiatric: Yes Reproductive: No Respiratory: No Immunizations Current: Yes Migraines: Yes ?: Not Menopausal: Yes : 4 Para: 4 Miscarriage: 0 : 1 Past Surgical History Section: Yes (1991 and 1992) Cholecystectomy: Yes Coronary Artery Bypass Graft: No Other Surgery: Yes ("1988 and 1990,two disc surgeries") Family History Family Myocardial Infarction: Yes Social History Alcohol Use: No Tobacco Use: No (former) Substance Use: No Allergies-Medications (Allergen,Severity, Reaction): Coded Allergies: codeine (Unverified Adverse Reaction, Severe, "Tears my stomach up, nausea and itchiness", 04/06/18) Reported Meds & Prescriptions Reported Meds & Active Scripts Active Sucralfate 1 Gram Tab 1 Gm PO TID on empty stomach Ondansetron Odt 4 Mg Tab 4 Mg SL Q8HR PRN Omeprazole 40 Mg Cap 40 Mg PO DAILY Review of Systems Except as stated in HPI: all other systems reviewed are Neg Physical Exam Narrative GENERAL: Well-nourished, well-developed patient, in NAD SKIN: Focused skin assessment warm/dry. No rashes or lesions. HEAD: Normocephalic. Atraumatic. EYES: No scleral icterus. No injection or drainage. THROAT: No pharyngeal injection, exudates, or tonsillar hypertrophy. Airway is patent. NECK: Supple, trachea midline. No JVD. No meningismus. CARDIOVASCULAR: Regular rate and rhythm without murmurs, gallops, or rubs. RESPIRATORY: Breath sounds equal bilaterally. No accessory muscle use. No wheezes, rales, or rhonchi MUSCULOSKELETAL: No cyanosis, or edema. Left calf- mid calf with an area of erythema approximately 2cm, round with point tenderness. Mild edema when compared to the right. Pinzon's and alicia's sign positive. bounding pulses distally. neurovascularly intact. BACK: Nontender without obvious deformity. No CVA tenderness. Data Data Last Documented VS Vital Signs Date Time Temp Pulse Resp B/P (MAP) Pulse Ox O2 Delivery O2 Flow Rate FiO2 04/06/18 15:19 98.1 85 16 117/58 (77) 96 Orders Orders Us Leg Venous Doppler (04/06/18 ) Aspirin Chew (Aspirin Chew) (04/06/18 17:45) Ed Discharge Order (04/06/18 17:52) [facility] Medical Decision Making Medical Screen Exam Complete: Yes Emergency Medical Condition: Yes Differential Diagnosis Right calf DVT, thrombophlebitis, superficial venous thrombosis, cellulitis Narrative Course 57-year-old female presents emergency department for evaluation of left calf pain that is been present for 3 days. Says that she noticed the calf swell up and became more painful throughout the last couple of days. Says she her pain is sharp that is worse with walking but decreases slightly with rest. Says she has "shooting pain" from her Achilles to her knee. She denies any numbness or tingling. She does have some decreased range of motion of her ankle secondary to pain. She denies recent travel, surgeries, history of cancer, history of DVT or PE. She has no family history of blood disorders or blood clots. She denies shortness of breath or chest pain. Says she went to urgent care prior to coming to the emergency department today and they recommended she come here to the emergency department for evaluation. Vital signs are stable. Physical exam findings demonstrate mild erythema with slight edema compared to the right leg. Erythema located mid calf. Ultrasound conclusion: 1. No evidence of DVT. 2. Occlusive superficial thrombus in the greater saphenous vein at the level of mid calf. I discussed this finding my attending he recommends a follow-up ultrasound in 1 week. In addition, patient should start aspirin daily. Recommend the use of compression stockings to reduce the possibility of worsening. Aspirin 325 mg administered in the emergency department today. She has strict instructions to return if her leg increases in size, edema, erythema or extends up into her leg. I recommended that she come here to the emergency department as patient does not have a primary care physician and I do not believe that she would have adequate follow-up as an outpatient to monitor this condition. She states understanding and will comply. Diagnosis Primary Impression: Superficial vein thrombosis Referrals: [facility] Additional Instructions: Start taking 1 aspirin daily. Have a follow-up ultrasound in 1 week to ensure stability. Follow-up with a primary care physician as soon as possible. If your pain worsens or becomes more widespread of the leg return to the emergency department immediately. Disposition: 01 DISCHARGE HOME Condition: Stable Kate Rich April 06, 2018 16:06
--- NOTE | 2018-04-06 17:21 | RADRPT ---
EXAM DATE: 04/06/2018 5:09 PM EDT AGE/SEX: 57 years / Female INDICATIONS: Left leg pain. CLINICAL DATA: This is the patient's initial encounter. Patient reports that signs and symptoms have been present for 3 days and indicates a pain score of 6/10. MEDICAL/SURGICAL HISTORY: Hypercholesterolemia. Migraines. GERD. Chronic back pain. Diabetes. D epression. Anxiety. Tobacco use. Cholecystectomy. section. Lumbar spine surgery. COMPARISON: No prior [facility] exams available for comparison. No external comparison. TECHNIQUE: Venous ultrasound of both lower extremities was performed from the inguinal ligament to t he proximal calf. Real-time, color Doppler and spectral tracing, compression and augmentation techni ques were used. FINDINGS: There is normal compressibility of the deep venous system from the inguinal region to the proximal calf. No echogenic clot is seen in the lumen of the common femoral, femoral, popliteal, and posterior tibial veins. There is a normal response of the venous system to proximal and distal augm entation and respiration. There is occlusive thrombus in the greater saphenous vein at the level of the mid calf. CONCLUSION: 1. No evidence of DVT. 2. Occlusive superficial thrombus in the greater saphenous vein at the level of the mid calf. Electronically signed by: Eyal Cyr MD 04/06/2018 5:19 PM EDT
[2018-04-06] MEDS ORDERED: ASPIRIN 81 MG CHEW TAB CHEW ONE (17:45)
== END 2018-04-06 18:16 | disposition home or self-care (01) ==
LOC: PHEFT 15:14
DX: I82.811 Embolism and thrombosis of superficial veins of right lower extremity (principal); E78.00 Pure hypercholesterolemia, unspecified; K21.9 Gastro-esophageal reflux disease without esophagitis
CPT/HCPCS: 93971; 99284

== ENCOUNTER 2018-04-12 11:24 | Emergency (ER) | payer SELFPAY ==
[~2018-04-12] VITALS: Ht 177.8 cm; Wt 68.0 kg
--- NOTE | 2018-04-12 11:34 | PD ---
HPI Chief Complaint: Chest Pain Time Seen by Provider: 11:34 Travel History International Travel<30 days: No Contact w/Intl Traveler<30days: No Traveled to known affect area: No History of Present Illness HPI 57-year-old female came to the emergency room with history of chest pain since yesterday. Patient says the pain is under the left side of her chest right around where her left breast is. The pain radiates a little bit to the back. She was in the emergency room about a week ago and was diagnosed with a superficial venous thrombosis of the greater saphenous vein in her calf. She was discharged home with a prescription of full-strength aspirin every day which she has been taking every night. She has not taken any today. She was asked to come to the emergency room if the chest pain or shortness of breath started. Vital signs are stable. No aggravating or relieving factors to the chest pain. She was also asked to come back tomorrow to get a repeat ultrasound of her left leg. Patient only takes one Ativan every day as a regular medication prescribed by his psychiatrist. Patient had a nuclear stress test November of this month which was negative. She is a smoker one pack per day. [facility] Past Medical History Narrative Medical List of her past medical, surgical, social and family history is reviewed from the nursing note. Anxiety: Yes Depression: Yes Heart Rhythm Problems: No Cancer: No Cardiac Catheterization: No Cardiovascular Problems: No High Cholesterol: Yes Congestive Heart Failure: No Diminished Hearing: Yes ("diminished") Endocrine: No GERD: Yes Genitourinary: No Headaches: Yes Heparin Induced Thrombocytopen: No Hypertension: No Immune Disorder: No Implanted Vascular Access Dvce: No Musculoskeletal: Yes (chronic back pain) Neurologic: Yes Psychiatric: Yes Reproductive: No Respiratory: No Immunizations Current: Yes Migraines: Yes Menopausal: Yes : 4 Para: 4 Miscarriage: 0 : 1 Past Surgical History Section: Yes (1991 and 1992) Cholecystectomy: Yes Coronary Artery Bypass Graft: No Other Surgery: Yes ("1988 and 1990,two disc surgeries") Social History Alcohol Use: No Tobacco Use: No (former) Substance Use: No Allergies-Medications (Allergen,Severity, Reaction): Coded Allergies: codeine (Unverified Adverse Reaction, Severe, "Tears my stomach up, nausea and itchiness", 04/06/18) Comments List of her allergies reviewed from the nursing note. Reported Meds & Prescriptions Reported Meds & Active Scripts Active Sucralfate 1 Gram Tab 1 Gm PO TID on empty stomach Ondansetron Odt 4 Mg Tab 4 Mg SL Q8HR PRN Omeprazole 40 Mg Cap 40 Mg PO DAILY Narrative Medication List of her home medications reviewed from the nursing note Review of Systems Except as stated in HPI: all other systems reviewed are Neg Cardiovascular: Positive: Chest Pain or Discomfort Physical Exam Narrative GENERAL: Awake, alert, no obvious distress SKIN: Focused skin assessment warm/dry. HEAD: Atraumatic. Normocephalic. EYES: Pupils equal and round. No scleral icterus. No injection or drainage. ENT: No nasal bleeding or discharge. Mucous membranes pink and moist. NECK: Trachea midline. No JVD. CARDIOVASCULAR: Regular rate and rhythm. No murmur appreciated. RESPIRATORY: No accessory muscle use. Clear to auscultation. Breath sounds equal bilaterally. GASTROINTESTINAL: Abdomen soft, non-tender, nondistended. Hepatic and splenic margins not palpable. MUSCULOSKELETAL: No obvious deformities. No clubbing. No cyanosis. No edema. NEUROLOGICAL: Awake and alert. No obvious cranial nerve deficits. Motor grossly within normal limits. Normal speech. PSYCHIATRIC: Appropriate mood and affect; insight and judgment normal. Data Data Last Documented VS Vital Signs Date Time Temp Pulse Resp B/P (MAP) Pulse Ox O2 Delivery O2 Flow Rate FiO2 04/12/18 15:04 04/12/18 14:00 64 16 95 Room Air 04/12/18 11:45 98.2 Orders Orders Electrocardiogram (04/12/18 11:44) Basic Metabolic Panel (Bmp) (04/12/18 11:44) Complete Blood Count With Diff (04/12/18 11:44) Magnesium (Mg) (04/12/18 11:44) Prothrombin Time / Inr (Pt) (04/12/18 11:44) Troponin I (04/12/18 11:44) Ecg Monitoring (04/12/18 11:44) Bilateral Bp Monitoring (04/12/18 11:44) Iv Access Insert/Monitor (04/12/18 11:44) Oximetry (04/12/18 11:44) Oxygen Administration (04/12/18 11:44) Sodium Chloride 0.9% Flush (Ns Flush) (04/12/18 11:45) Ct Pulmonary Angiogram (04/12/18 11:44) Chest, Pa & Lat (04/12/18 11:44) Us Leg Venous Doppler (04/12/18 ) Aspirin Chew (Aspirin Chew) (04/12/18 12:15) Iohexol 350 Inj (Omnipaque 350 Inj) (04/12/18 13:02) Ed Discharge Order (04/12/18 14:19) Labs Laboratory Tests Test 04/12/18 12:00 White Blood Count 4.6 TH/MM3 Red Blood Count 4.61 MIL/MM3 Hemoglobin 14.1 GM/DL Hematocrit 42.6 % Mean Corpuscular Volume 92.3 FL Mean Corpuscular Hemoglobin 30.6 PG Mean Corpuscular Hemoglobin Concent 33.2 % Red Cell Distribution Width 12.6 % Platelet Count 215 TH/MM3 Mean Platelet Volume 8.0 FL Neutrophils (%) (Auto) 63.7 % Lymphocytes (%) (Auto) 23.6 % Monocytes (%) (Auto) 8.9 % Eosinophils (%) (Auto) 1.4 % Basophils (%) (Auto) 2.4 % Neutrophils # (Auto) 2.9 TH/MM3 Lymphocytes # (Auto) 1.1 TH/MM3 Monocytes # (Auto) 0.4 TH/MM3 Eosinophils # (Auto) 0.1 TH/MM3 Basophils # (Auto) 0.1 TH/MM3 CBC Comment DIFF FINAL Differential Comment Prothrombin Time 10.7 SEC Prothromb Time International Ratio 1.1 RATIO Blood Urea Nitrogen 15 MG/DL Creatinine 0.73 MG/DL Random Glucose 82 MG/DL Calcium Level 9.1 MG/DL Magnesium Level 2.3 MG/DL Sodium Level 141 MEQ/L Potassium Level 4.2 MEQ/L Chloride Level 108 MEQ/L Carbon Dioxide Level 27.3 MEQ/L Anion Gap 6 MEQ/L Estimat Glomerular Filtration Rate 83 ML/MIN Troponin I LESS THAN 0.02 NG/ML MDM Medical Decision Making Medical Screen Exam Complete: Yes Emergency Medical Condition: Yes Medical Record Reviewed: Yes Interpretation(s) Twelve-lead EKG was reviewed by me. Normal sinus rhythm, normal axis, nonspecific ST-T wave changes. Heart rate of 77 bpm Differential Diagnosis PE, ACS, nonspecific chest pain Narrative Course 12 PM patient will be given 2 baby aspirins. I have ordered a CT pulmonary angiogram of the chest to rule out PE since there is a small chance of SVT in the greater saphenous vein in the proximal calf area to extend into a DVT. She will also get an ultrasound of her leg since she was asked to come back tomorrow to get a repeat ultrasound anyways. Awaiting for all these test to be done and resulted. 1:22 PM blood test results are back and within normal limit. CT pulmonary angiogram is negative for PE or any other acute abnormalities. Awaiting for the ultrasound to be done and resulted. 2:19 PM the ultrasound continues to show the superficial venous thrombosis in the greater saphenous vein without extension into DVT. I will discharge her home Procedures EKG Prior to Arrival: No Diagnosis Primary Impression: Atypical chest pain Additional Impression: Needs smoking cessation education Referrals: [facility] Additional Instructions: Follow-up with the walk-in clinic whose name and address been provided to you in this discharge instructions. You should consider quitting smoking since is not good for your heart or lungs. Disposition: 01 DISCHARGE HOME Condition: Stable Evangelina Hoskins MD April 12, 2018 11:34
[2018-04-12 11:45] VITALS: BP 133/69; PULSE 60; RESP 16; TEMP 98.2; O2SAT 98
[2018-04-12] MEDS ORDERED: SODIUM CHLORIDE 0.9% FLUSH 10 ML FLUSH IVF PRN (11:45)
[2018-04-12 12:13] LABS: AUTOMATED NEUTROPHIL # 2.9 TH/MM3 (1.8-7.7); BASOPHIL # 0.1 TH/MM3 (0-0.2); BASOPHIL % 2.4 % (0.0-2.0); EOSINOPHIL # 0.1 TH/MM3 (0-0.4); EOSINOPHIL % 1.4 % (0.0-4.0); HEMATOCRIT 42.6 % (35.0-46.0); HEMOGLOBIN 14.1 GM/DL (11.6-15.3); LYMPH % 23.6 % (9.0-44.0); LYMPHOCYTE # 1.1 TH/MM3 (1.0-4.8); MEAN CELL VOLUME 92.3 FL (80.0-100.0); MEAN CORPUSCULAR HEMOGLOBIN 30.6 PG (27.0-34.0); MEAN CORPUSCULAR HGB CONC 33.2 % (32.0-36.0); MONO % 8.9 % (0.0-8.0); MONOCYTE # 0.4 TH/MM3 (0-0.9); NEUT % 63.7 % (16.0-70.0); PLATELET COUNT 215 TH/MM3 (150-450); RED BLOOD COUNT 4.61 MIL/MM3 (4.00-5.30); RED CELL DISTRIBUTION WIDTH 12.6 % (11.6-17.2); WHITE BLOOD COUNT 4.6 TH/MM3 (4.0-11.0)
[2018-04-12] MEDS ORDERED: ASPIRIN 81 MG CHEW TAB CHEW ONE (12:15)
[2018-04-12 12:27] VITALS: BP_SYST 103; BP_SYST 133; BP_DIAS 58; BP_DIAS 69; PULSE 68; RESP 16; O2SAT 98
[2018-04-12 12:37] LABS: CHLORIDE 108 MEQ/L (98-107); SODIUM (NA) 141 MEQ/L (136-145)
[2018-04-12 12:39] LABS: CALCIUM 9.1 MG/DL (8.5-10.1)
[2018-04-12 12:40] LABS: BICARBONATE 27.3 MEQ/L (21.0-32.0); BLOOD UREA NITROGEN 15 MG/DL (7-18); GLUCOSE,RANDOM 82 MG/DL (74-106); MAGNESIUM 2.3 MG/DL (1.5-2.5)
[2018-04-12 12:41] LABS: INTERNATIONAL NORMALIZED RATIO 1.1 RATIO; PROTHROMBIN TIME - PATIENT 10.7 SEC (9.8-11.6)
[2018-04-12 12:43] LABS: CREATININE 0.73 MG/DL (0.50-1.00); GLOMERULAR FILTRATION RATE 83 ML/MIN (>89)
[2018-04-12 12:48] LABS: TROPONIN I LESS THAN 0.02 NG/ML (0.02-0.05)
[2018-04-12] MEDS ORDERED: IOHEXOL 350 MG/ML 10 ML VIAL (for RAD DIAG) IVCONTRAST ONE (13:02)
--- NOTE | 2018-04-12 13:08 | RADRPT ---
EXAM DATE: 04/12/2018 1:02 PM EDT AGE/SEX: 57 years / Female INDICATIONS: Left sided chest pressure. CLINICAL DATA: This is the patient's initial encounter. Patient reports that signs and symptoms have been present for 2 days and indicates a pain score of 5/10. MEDICAL/SURGICAL HISTORY: Gastroesophageal reflux disease. Cholecystectomy. section. Fus ion, lumbar. RADIATION DOSE: 9.26 CTDI (mGy) COMPARISON: [facility], CT PULMONARY ANGIOGRAM, 12/26/2016. . TECHNIQUE: Volumetric scanning was performed using a multi-row detector CT scanner during bolus infu heide of 65 ml Omnipaque 350 (iohexol) nonionic water-soluble contrast as a single exam dose. The maggie a was post processed with a variety of visualization algorithms including full volume maximum intensi ty projection and sliding thin slab reformation. Using automated exposure control and adjustment of the mA and/or kV according to patient size, radiation dose was kept as low as reasonably achievable t o obtain optimal diagnostic quality images. FINDINGS: Pulmonary Arteries: No filling defects are seen in the pulmonary arteries out to the subsegmental ve ssels. The left and right pulmonary arteries are normal in diameter. Lung: No infiltrates seen. Mild emphysema. Effusion: None. Mediastinum: No evidence of mediastinal or hilar adenopathy. Other: The axilla is unremarkable. CONCLUSION: 1. No evidence for pulmonary embolism. 2. No infiltrate. 3. Mild emphysema. Electronically signed by: Jacky Jackson MD 04/12/2018 1:07 PM EDT
[2018-04-12 14:00] VITALS: BP 128/60; PULSE 64; RESP 16; O2SAT 95
--- NOTE | 2018-04-12 14:01 | RADRPT ---
EXAM DATE: 04/12/2018 1:47 PM EDT AGE/SEX: 57 years / Female INDICATIONS: Left lower extremity pain with recent superficial thrombus. CLINICAL DATA: This is the patient's subsequent encounter. Patient reports that signs and symptoms h ave been present for 1 week and indicates a pain score of 4/10. MEDICAL/SURGICAL HISTORY: . Chronic back pain. Migraines. Hypercholesterolemia. GERD. Tobac co use. Depression. . sections. Lumbar spine. Cholecystectomy. COMPARISON: [facility], US LEG LEFT VENOUS DOPPLER, 04/06/2018. . No external comparison. TECHNIQUE: Venous ultrasound of both lower extremities was performed from the inguinal ligament to t he proximal calf. Real-time, color Doppler and spectral tracing, compression and augmentation techni ques were used. FINDINGS: There is normal compressibility of the deep venous system from the inguinal region to the proximal ca lf. No echogenic clot is seen in the lumen of the common femoral, femoral, popliteal, and posterior tibial veins. There is a normal response of the venous system to proximal and distal augmentation an d respiration. There is thrombus seen within the greater saphenous vein of the mid calf. There is a t hrombosed varicose vein in this region. CONCLUSION: 1. No deep venous thrombosis. 2. Thrombosis of superficial mid greater saphenous vein consistent with superficial thrombophlebitis . Electronically signed by: Jacky Jackson MD 04/12/2018 1:59 PM EDT
--- NOTE | 2018-04-12 15:21 | RADRPT ---
EXAM DATE: 04/12/2018 12:21 PM EDT AGE/SEX: 57 years / Female INDICATIONS: Chest pain and tightness. CLINICAL DATA: This is the patient's initial encounter. Patient reports that signs and symptoms have been present for 2 days and indicates a pain score of 7/10. MEDICAL/SURGICAL HISTORY: . Hypercholesterolemia. Migraines. GERD. Chronic back pain. Diabetes. Depression. Anxiety. Tobacco use . Cholecystectomy. section. Lumbar spine surgery. COMPARISON: [facility], CHEST PA & LAT, 10/17/2017. . FINDINGS: PA and lateral views of the chest demonstrate the lungs to be symmetrically aerated without evidence of mass, infiltrate or effusion. The cardiomediastinal contours are unremarkable. Osseous structures are intact. CONCLUSION: Negative examination. Electronically signed by: Shiva Lopez MD 04/12/2018 3:19 PM EDT
--- NOTE | 2018-04-13 14:09 | EKG ---
Date Performed: 04/12/2018 Time Performed: 11:34:23 PTAGE: 57 years EKG: Sinus rhythm POSSIBLE RIGHT VENTRICULAR CONDUCTION DELAY BORDERLINE ECG PREVIOUS TRACING : 11/20/2017 14.20 Since the previous tracing, no significant change noted DOCTOR: Antonio Torres Interpretating Date/Time 04/13/2018 14:03:56
== END 2018-04-12 15:06 | disposition home or self-care (01) ==
LOC: PHED 11:24
DX: R07.89 Other chest pain (principal); R94.31 Abnormal electrocardiogram [ECG] [EKG]; I82.812 Embolism and thrombosis of superficial veins of left lower extremity; E78.00 Pure hypercholesterolemia, unspecified; F32.9 Major depressive disorder, single episode, unspecified; F41.9 Anxiety disorder, unspecified; G89.29 Other chronic pain; M54.9 Dorsalgia, unspecified; K21.9 Gastro-esophageal reflux disease without esophagitis; F17.200 Nicotine dependence, unspecified, uncomplicated
CPT/HCPCS: 71046; 71275; 80048; 83735; 84484; 85025; 85610; 93005; 93971; 99285; Q9967